=== PATIENT | male | born 1975 | race Caucasian/White ===

== ENCOUNTER 2019-09-26 18:18 | Inpatient (IN) | payer MEDICAID ==
[~2019-09-26] VITALS: Ht 182.9 cm; Wt 70.2 kg
[~2019-09-26 18:18] MED LIST: ERYT1OIN6 OP; PERM60CR4 TOP; etomidate 2mg/ml inj. ONE; rocuronium bromide 100mg/10ml (10mg/ml) injection IV ONE
[2019-09-26] MEDS ORDERED: normal saline 1000ML IV soln IVB ONE (18:50)
--- NOTE | 2019-09-26 18:58 | NUR ---
NOTIFIED MANA VALENZUELA OF PT BG 55, VERBAL ORDER 1 AMP D50
[2019-09-26] MEDS ORDERED: dextrose 50%-water 50ml dispensing syringe IV ONE ×2 (19:00→23:40)
[2019-09-26 19:01] LABS: ABG BASE EXCESS -18.4 mmol/L (-2.0-3.0); ABG HCO3 17.1 mmol/L (22.0-26.0); ABG OXYGEN SATURATION 63.6 % (95-98); ABG PCO2 (T) 92.6 mmHg (35.0-45.0); ABG PH (T) 6.885 (7.350-7.450); ALLEN'S TEST POSITIVE; FCOHb 0.3 % (0.5-1.5); FMetHb 0.3 % (0.3-1.12); FO2Hb 63.2 % (94-100); PEEP 15 cm H2O; RESPIRATORY RATE 20 b/min; TIDAL VOLUME 550 mL
[2019-09-26] MEDS ORDERED: piperacillin/tazo 3.375gm/50ml 50 ML IV ONE (19:05)
[2019-09-26] MEDS ORDERED: vancomycin/NS 1 GM ADD-VANTAGE 250 ML IV ONE (19:05)
[2019-09-26 19:22] LABS: CLARITY,URINE CLEAR (Clear); COLOR,URINE YELLOW (Yellow); GLUCOSE, URINE NEGATIVE (Neg); KETONES,URINE NEGATIVE (Neg); LEUKOCYTE ESTERASE ,URINE NEGATIVE (Neg); NITRITES, URINE NEGATIVE (Neg); OCCULT BLOOD,URINE TRACE-INTACT (Neg); PROTEIN,URINE 30 mg/dl (Neg); UROBILINOGEN,URINE 0.2 E.U/dL (0.2-1.0)
[2019-09-26] MEDS: propofol 1000mg/100ml bottle 100 ML IV SCH (19:22)
--- NOTE | 2019-09-26 19:30 | NUR ---
MANA VALENZUELA CLEARED CENTRAL LINE FOR PLACEMENT AND USE
[2019-09-26 19:32] LABS: URINE AMPHETAMINE SCREEN NEGATIVE (Neg); URINE BARBITUATE SCREEN NEGATIVE (Neg); URINE BENZODIAZEPINES SCREEN NEGATIVE (Neg); URINE CANNABINOID SCREEN NEGATIVE (Neg); URINE COCAINE SCREEN NEGATIVE (Neg); URINE METHADONE SCREEN POSITIVE (Neg); URINE OPIATE SCREEN NEGATIVE (Neg); URINE PHENCYCLIDINE SCREEN NEGATIVE (Neg)
[2019-09-26 19:42] LABS: UA COLLECTION TYPE FOLEY CATH
[2019-09-26 19:45] LABS: BACTERIA,URINE NONE SEEN /HPF (Neg); COARSE GRANULAR CAST 0-3 /LPF (NEGATIVE); MUCUS STRANDS FEW /LPF (Neg); RBC,URINE NONE SEEN /HPF (0-2); SQUAMOUS EPITHELIAL CELL,UR FEW /LPF (FEW); WBC,URINE 0-4 /HPF (0-4)
[2019-09-26] MEDS ORDERED: iohexol 350MG/ML 100ml bottle IV ONE (19:49)
[2019-09-26 19:51] LABS: BASOPHILS % (AUTO) 0.3 % (0-1); EOSINOPHILS % (AUTO) 0.5 % (0-6); HEMATOCRIT 49.7 % (42.0-52.0); HEMOGLOBIN 16.1 g/dl (14.0-17.9); LYMPHOCYTES # (AUTO) 0.7 X10'3 (1.1-4.8); LYMPHOCYTES % (AUTO) 46.1 % (21-51); MEAN CORPUSCULAR HEMOGLOBIN 26.8 PG (27.0-31.0); MEAN CORPUSCULAR HGB CONC 32.4 g/dL (33.0-36.5); MEAN CORPUSCULAR VOLUME 82.6 FL (78-98); MEAN PLATELET VOLUME 8.1 FL (7.4-10.4); MONOCYTES # (AUTO) 0.1 X10'3 (0-0.9); NEUTROPHILS # (AUTO) 0.7 X10'3 (1.8-7.7); NEUTROPHILS % (AUTO) 44.1 % (42-75); PLATELET COUNT 242 X10'3 (140-440); RED BLOOD COUNT 6.02 X10'6 (4.70-6.10); RED CELL DISTRIBUTION WIDTH 17.8 % (11.5-14.5); WHITE BLOOD COUNT 1.6 X10'3 (4.5-11.0)
[2019-09-26 19:57] LABS: PARTIAL THROMBOPLASTIN TIME 35 SECONDS (22-32)
[2019-09-26 20:00] LABS: ABG BASE EXCESS -16.4 mmol/L (-2.0-3.0); ABG HCO3 17.5 mmol/L (22.0-26.0); ABG OXYGEN SATURATION 84.2 % (95-98); ABG PCO2 (T) 85.4 mmHg (35.0-45.0); ABG PH (T) 6.939 (7.350-7.450); ABG PO2 (T) 67.5 mmHg (83-108); ALLEN'S TEST POSITIVE; FCOHb 0.2 % (0.5-1.5); FMetHb 0.6 % (0.3-1.12); FO2Hb 83.5 % (94-100); PATIENT TEMPERATURE 38.4; RESPIRATORY RATE 22 b/min; TIDAL VOLUME 550 mL
[2019-09-26 20:02] LABS: ALANINE AMINOTRANSFERASE 66 U/L (12-78); ALBUMIN 2.9 G/DL (3.4-5.0); ALBUMIN/GLOBULIN RATIO 0.9 (1.1-1.5); ALKALINE PHOSPHATASE 178 IU/L (46-116); ANION GAP 16 (8-16); ASPARTATE AMINO TRANSFERASE 115 U/L (10-37); BILIRUBIN,TOTAL 0.1 MG/DL (0.1-1.0); BLOOD UREA NITROGEN 17 MG/DL (7-18); BUN/CREATININE RATIO 7.5 (5.4-32.0); CALCIUM 7.2 MG/DL (8.5-10.1); CHLORIDE 108 MMOL/L (99-107); CREATININE 2.26 MG/DL (0.60-1.10); GLUCOSE 170 MG/DL (70-104); POTASSIUM 3.8 MMOL/L (3.5-5.1); SODIUM 147 MMOL/L (135-145); TOTAL CARBON DIOXIDE 22.8 MMOL/L (24-32); eGFR 32 ML/MIN
[2019-09-26 20:06] LABS: ETHANOL < 0.010 GM/DL (0.0-0.010); MAGNESIUM 2.2 MG/DL (1.5-2.4)
[2019-09-26 20:09] LABS: LACTIC SEPSIS 6.6 MMOL/L (0.4-2.0); TROPONIN I 5.43 NG/ML (0.0-0.05)
--- NOTE | 2019-09-26 20:09 | NUR ---
TROPONIN 5.43 AND LACTIC ACID 6.6. REPORTED TO DR. ADAIR AND NANETTE ALEX.
[2019-09-26 20:49] LABS: NUCLEATED RED BLOOD CELLS 1 /100WBC (0-0); TOTAL CELLS COUNTED 100
[2019-09-26 20:51] LABS: ANISOCYTOSIS 1+; PLATELET ESTIMATE NORMAL
[2019-09-26] MEDS: NORepinephrine 8mg/ 250ml NS 250 ML IV SCH (21:17)
[2019-09-26] MEDS ORDERED: NO HOME MEDS (22:04)
[2019-09-26] MEDS ORDERED: potassium Cl 20mEq/100mL bag 100 ML IV PRN (22:05)
[2019-09-26] MEDS ORDERED: MESSAGE TO PHARMACY PO ONE (22:05)
[2019-09-26] MEDS ORDERED: dextrose 50%-water 50ml dispensing syringe IV PRN (22:05)
[2019-09-26] MEDS ORDERED: acetaminophen 650mg rectal suppository RC PRN (22:05)
[2019-09-26] MEDS ORDERED: insulin Lispro (HumaLOG) vial - multi-dose SQ SCH (22:05)
[2019-09-26] MEDS ORDERED: dextrose ORAL solution 15 GM/59 ML bottle PO PRN ×2 (22:05)
[2019-09-26] MEDS ORDERED: albuterol 2.5 MG/3 ML nebule NEB PRN (22:05)
[2019-09-26] MEDS ORDERED: acetaminophen 325mg tablet PO PRN (22:05)
[2019-09-26] MEDS ORDERED: ondansetron/PF 4mg/2ml inj IV PRN (22:05)
[2019-09-26] MEDS ORDERED: proCHLORperazine 10 MG/2 ml inj IV PRN (22:05)
[2019-09-26] MEDS ORDERED: magnesium 4gm in 100ml NS 100 ML IV PRN (22:05)
[2019-09-26] MEDS ORDERED: glucagon, human recombinant 1mg kit SUBCUT PRN (22:05)
[2019-09-26] MEDS ORDERED: cefepime 2g/NS 100ml ADVANTAGE 100 ML IV SCH (22:35)
[2019-09-26] MEDS ORDERED: heparin 10,000 units/1 ML INJ IV PRN (22:35)
[2019-09-26] MEDS ORDERED: heparin 10,000 units/1 ML INJ IV ONE (22:35)
[2019-09-26] MEDS ORDERED: NORepinephrine 8mg/ 250ml NS 250 ML IV PRN (22:37)
[2019-09-26] MEDS ORDERED: VANCOMYCIN 1gm/H2O 200ml PB 200 ML IV SCH (23:03)
[2019-09-26 23:16] LABS: ABG BASE EXCESS -14.6 mmol/L (-2.0-3.0); ABG HCO3 16.8 mmol/L (22.0-26.0); ABG OXYGEN SATURATION 92.1 % (95-98); ABG PCO2 (T) 69.4 mmHg (35.0-45.0); ABG PO2 (T) 84.9 mmHg (83-108); FCOHb 0.5 % (0.5-1.5); FMetHb 0.5 % (0.3-1.12); FO2Hb 91.2 % (94-100); PATIENT TEMPERATURE 39.6; PEEP 15 cm H2O; RESPIRATORY RATE 25 b/min; TIDAL VOLUME 550 mL; TOTAL HEMOGLOBIN 17.3 G/dl (14.0-17.9)
[2019-09-26 23:20] LABS: ALANINE AMINOTRANSFERASE 70 U/L (12-78); ALBUMIN 2.5 G/DL (3.4-5.0); ALBUMIN/GLOBULIN RATIO 0.9 (1.1-1.5); ALKALINE PHOSPHATASE 161 IU/L (46-116); ANION GAP 11 (8-16); ASPARTATE AMINO TRANSFERASE 217 U/L (10-37); BILIRUBIN,TOTAL 0.3 MG/DL (0.1-1.0); BLOOD UREA NITROGEN 22 MG/DL (7-18); BUN/CREATININE RATIO 8.2 (5.4-32.0); CALCIUM 6.8 MG/DL (8.5-10.1); CHLORIDE 110 MMOL/L (99-107); CREATININE 2.68 MG/DL (0.60-1.10); GLUCOSE 80 MG/DL (70-104); SODIUM 141 MMOL/L (135-145); TOTAL PROTEIN 5.4 G/DL (6.4-8.2); eGFR 26 ML/MIN
[2019-09-26] MEDS: normal saline 1000ml 1,000 ML IV SCH (23:20)
[2019-09-26] MEDS: heparin 25,000 UNIT/250ml bag 250 ML IV SCH (23:25)
[2019-09-26 23:27] LABS: HEMOGLOBIN A1C 5.7 % (4.5-6.2)
[2019-09-26 23:28] LABS: POTASSIUM 6.1 MMOL/L (3.5-5.1)
[2019-09-26 23:31] LABS: TROPONIN I 9.09 NG/ML (0.0-0.05)
--- NOTE | 2019-09-26 23:38 | NUR ---
NOTIFIED DRGAAN RAMOS OF PT ELEVATED POTASSIUM AND 2ND TROPONIN. DRAGAN STATED SHE WILL PUT IN ORDERS
[2019-09-26] MEDS ORDERED: albuterol 2.5 MG/3 ML nebule CONTNEB STA (23:39)
[2019-09-26] MEDS ORDERED: insulin regular, human 10 units/0.1 ml syringe IV STA (23:39)
[2019-09-26] MEDS ORDERED: calcium chloride inj. 1,000 MG in normal saline 100ml IV soln 90 ML IV STA (23:39)
[2019-09-26] MEDS ORDERED: sodium bicarbonate (8.4%) 1 mEq/ml syringe IV ONE (23:40)
[2019-09-26] MEDS: midazolam 100mg in NS 100ml 100 ML IV PRN (23:45)
[2019-09-26] MEDS: FENTANYL-0.9 % NACL/PF 100 ML IV PRN (23:46)
[2019-09-27] VITALS (26 sets, daily range): BP systolic 79–131; BP diastolic 32–79
[2019-09-27] MEDS: ipratropium/albuterol 3ml nebule NEB SCH ×7 (00:04→22:30)
[2019-09-27] MEDS: NORepinephrine 8mg/ 250ml NS 250 ML IV SCH ×8 (00:04→21:34)
--- NOTE | 2019-09-27 00:04 | NUR ---
PTS BP 55/34 SO NS 1 L BOLUS STARTED WHILE NANETTE ALEX CALLED SHOW HOST.
[2019-09-27] MEDS ORDERED: DOBUTamine-DoBUTrex 500mg/D5W 250 ML IV PRN (00:05)
[2019-09-27] MEDS ORDERED: acetaminophen 1,000mg/100ml IV 100 ML IV STA (00:12)
[2019-09-27] MEDS ORDERED: calcium chloride 100 MG/1 ML inj IV ONE (00:15)
[2019-09-27] MEDS: CEFEPIME 2gm in D5W 50mL 50 ML IV SCH (01:47)
[2019-09-27] MEDS: propofol 1000mg/100ml bottle 100 ML IV SCH ×2 (01:48→01:51)
[2019-09-27] MEDS: vasopressin inj. 40 UNIT in normal saline 50ml IV soln 40 ML IV SCH ×2 (02:32→14:15)
[2019-09-27 03:04] LABS: BASOPHILS % (AUTO) 0.1 % (0-1); EOSINOPHILS % (AUTO) 0.1 % (0-6); HEMATOCRIT 45.4 % (42.0-52.0); HEMOGLOBIN 14.8 g/dl (14.0-17.9); LYMPHOCYTES # (AUTO) 0.9 X10'3 (1.1-4.8); LYMPHOCYTES % (AUTO) 35.7 % (21-51); MEAN CORPUSCULAR HEMOGLOBIN 26.7 PG (27.0-31.0); MEAN CORPUSCULAR HGB CONC 32.5 g/dL (33.0-36.5); MEAN CORPUSCULAR VOLUME 82.2 FL (78-98); MEAN PLATELET VOLUME 8.3 FL (7.4-10.4); MONOCYTES # (AUTO) 0.2 X10'3 (0-0.9); MONOCYTES % (AUTO) 6.5 % (2-12); NEUTROPHILS # (AUTO) 1.4 X10'3 (1.8-7.7); NEUTROPHILS % (AUTO) 57.6 % (42-75); PLATELET COUNT 209 X10'3 (140-440); RED BLOOD COUNT 5.52 X10'6 (4.70-6.10); RED CELL DISTRIBUTION WIDTH 17.6 % (11.5-14.5); WHITE BLOOD COUNT 2.5 X10'3 (4.5-11.0)
[2019-09-27 03:11] LABS: ALANINE AMINOTRANSFERASE 67 U/L (12-78); ALBUMIN/GLOBULIN RATIO 0.9 (1.1-1.5); ALKALINE PHOSPHATASE 127 IU/L (46-116); ANION GAP 9 (8-16); ASPARTATE AMINO TRANSFERASE 182 U/L (10-37); BILIRUBIN,TOTAL 0.2 MG/DL (0.1-1.0); BLOOD UREA NITROGEN 29 MG/DL (7-18); BUN/CREATININE RATIO 8.7 (5.4-32.0); CALCIUM 6.8 MG/DL (8.5-10.1); CHLORIDE 114 MMOL/L (99-107); CREATININE 3.35 MG/DL (0.60-1.10); GLUCOSE 110 MG/DL (70-104); POTASSIUM 4.9 MMOL/L (3.5-5.1); SODIUM 146 MMOL/L (135-145); TOTAL CARBON DIOXIDE 22.9 MMOL/L (24-32); TOTAL PROTEIN 4.3 G/DL (6.4-8.2); eGFR 20 ML/MIN
[2019-09-27 03:15] LABS: MAGNESIUM 1.6 MG/DL (1.5-2.4)
[2019-09-27 03:17] LABS: TROPONIN I 14.18 NG/ML (0.0-0.05)
[2019-09-27 03:27] LABS: PARTIAL THROMBOPLASTIN TIME > 139 SECONDS (22-32)
[2019-09-27 03:40] LABS: ABG BASE EXCESS -15.7 mmol/L (-2.0-3.0); ABG OXYGEN SATURATION 97.4 % (95-98); ABG PCO2 (T) 53.2 mmHg (35.0-45.0); ABG PH (T) 7.055 (7.350-7.450); ABG PO2 (T) 130.1 mmHg (83-108); ALLEN'S TEST POSITIVE; FCOHb 0.3 % (0.5-1.5); FMetHb 0.4 % (0.3-1.12); FO2Hb 96.7 % (94-100); PATIENT TEMPERATURE 39.8; PEEP 15 cm H2O; RESPIRATORY RATE 25 b/min; TIDAL VOLUME 550 mL; TOTAL HEMOGLOBIN 16.1 G/dl (14.0-17.9)
[2019-09-27 03:46] LABS: NUCLEATED RED BLOOD CELLS 3 /100WBC (0-0); TOTAL CELLS COUNTED 100
[2019-09-27 03:47] LABS: ANISOCYTOSIS 1+; PLATELET ESTIMATE NORMAL
[2019-09-27] MEDS ORDERED: sodium bicarbonate (8.4%) 1 mEq/ml syringe IV ONE (04:45)
[2019-09-27] MEDS ORDERED: sodium bicarbonate (8.4%) inj. 1 MEQ/ML ML ONE (04:52)
[2019-09-27] MEDS: sodium bicarbonate (8.4%) inj. 75 MEQ in dextrose 5% water 500ml 500 ML IV SCH ×4 (05:42→22:29)
--- NOTE | 2019-09-27 06:30 | NUR ---
Patient in room CICU 2013. I have received report from Roxy FITZPATRICK and had the opportunity to ask questions and assume patient care.
[2019-09-27] MEDS: midazolam 100mg in NS 100ml 100 ML IV PRN ×2 (07:53→18:04)
[2019-09-27] MEDS: pantoprazole 40 MG vial IV SCH (07:55)
[2019-09-27] MEDS: docusate sodium 100mg/10ml UD cup PO SCH ×2 (07:59→20:18)
[2019-09-27] MEDS: K, MAG and/or Phos replacement - Verify level? MC SCH (08:00)
[2019-09-27] MEDS ORDERED: VANCOMYCIN 1gm/H2O 200ml PB 200 ML IV SCH (08:00)
[2019-09-27] MEDS: normal saline 1000ml 1,000 ML IV SCH ×2 (08:04→18:04)
[2019-09-27 08:20] LABS: ALBUMIN 2.2 G/DL (3.4-5.0); ANION GAP 16 (8-16); BLOOD UREA NITROGEN 35 MG/DL (7-18); CALCIUM 6.8 MG/DL (8.5-10.1); CHLORIDE 113 MMOL/L (99-107); CREATININE 3.87 MG/DL (0.60-1.10); GLUCOSE 148 MG/DL (70-104); PHOSPHORUS 4.8 MG/DL (2.3-4.5); POTASSIUM 4.3 MMOL/L (3.5-5.1); SODIUM 147 MMOL/L (135-145); eGFR 17 ML/MIN
[2019-09-27 08:55] LABS: ABG HCO3 14.2 mmol/L (22.0-26.0); ABG OXYGEN SATURATION 91.9 % (95-98); ABG PCO2 (T) 55.5 mmHg (35.0-45.0); ABG PH (T) 7.027 (7.350-7.450); ABG PO2 (T) 70.5 mmHg (83-108); FCOHb 0.3 % (0.5-1.5); FMetHb 0.4 % (0.3-1.12); FO2Hb 91.3 % (94-100); PEEP 12 cm H2O; RESPIRATORY RATE 25 b/min; TIDAL VOLUME 550 mL; TOTAL HEMOGLOBIN 15.9 G/dl (14.0-17.9)
[2019-09-27 09:45] LABS: TROPONIN I 11.97 NG/ML (0.0-0.05)
--- NOTE | 2019-09-27 09:45 | NUR ---
Cardiac Ultrasound is in the room with Patient and Fiance.
--- NOTE | 2019-09-27 10:54 | NUR ---
Sonny at bedside, was available to answer questions for Admission Interventions, and was able to talk with Dr. Montoya post-rounding.
[2019-09-27 11:20] LABS: OXYGEN SATURATION (MIXED VEN) 72.6 % (60-80); PO2 MIXED VENOUS (TEMP COR) 51.5 mmHg (35-46)
[2019-09-27] MEDS: methylPREDNISolone sod succ/PF 40mg inj. IV SCH ×2 (13:57→20:18)
--- NOTE | 2019-09-27 15:13 | NUR ---
Tube feeding consult. Patient intubated and sedated with respiratory failure after found responsive at home s/p OD of methadone. Per MD note has white out left lung. History of celiac disease, hepatitis C, and heroin. TF recs are below. Recommend: 1. Continuous tube feeding with vital AF at goal rate of 80 ml/hr will provide total volume 1920 ml, 2304 cals, 144 g protein, 1555 ml water. 2. If providing water flush recommend 135 ml water flush q 4 hours 3. prealbumin q tuesday and 4. daily weights 5. when extubated advance diet as medically indicated to regular Addendum: 09/27/19 at [address] Amended: Links added.
[2019-09-27 15:14] LABS: HIV ANTIBODY 1&2 RAPID NON-REACTIVE (Neg)
[2019-09-27 17:50] LABS: ABG BASE EXCESS -15.1 mmol/L (-2.0-3.0); ABG HCO3 12.9 mmol/L (22.0-26.0); ABG OXYGEN SATURATION 97.5 % (95-98); ABG PCO2 (T) 37.8 mmHg (35.0-45.0); ABG PH (T) 7.151 (7.350-7.450); ABG PO2 (T) 107.7 mmHg (83-108); FCOHb 0.3 % (0.5-1.5); FMetHb 0.4 % (0.3-1.12); FO2Hb 96.8 % (94-100); PATIENT TEMPERATURE 36.9; PEEP 12 cm H2O; RESPIRATORY RATE 25 b/min; TIDAL VOLUME 550 mL; TOTAL HEMOGLOBIN 15.2 G/dl (14.0-17.9)
[2019-09-27 18:06] LABS: ALANINE AMINOTRANSFERASE 118 U/L (12-78); ALBUMIN 2.1 G/DL (3.4-5.0); ALBUMIN/GLOBULIN RATIO 0.8 (1.1-1.5); ALKALINE PHOSPHATASE 96 IU/L (46-116); ANION GAP 17 (8-16); ASPARTATE AMINO TRANSFERASE 149 U/L (10-37); BILIRUBIN,TOTAL 0.2 MG/DL (0.1-1.0); BLOOD UREA NITROGEN 40 MG/DL (7-18); BUN/CREATININE RATIO 9.2 (5.4-32.0); CALCIUM 6.3 MG/DL (8.5-10.1); CHLORIDE 109 MMOL/L (99-107); CREATININE 4.36 MG/DL (0.60-1.10); GLUCOSE 246 MG/DL (70-104); POTASSIUM 4.7 MMOL/L (3.5-5.1); SODIUM 144 MMOL/L (135-145); TOTAL CARBON DIOXIDE 18.2 MMOL/L (24-32); TOTAL PROTEIN 4.6 G/DL (6.4-8.2); eGFR 15 ML/MIN
--- NOTE | 2019-09-27 18:25 | NUR ---
Problems reprioritized. Patient report given, questions answered & plan of care reviewed with Roxy FITZPATRICK.
[2019-09-27] MEDS: insulin glargine (Lantus) pen - multi-dose SQ SCH (21:28)
[2019-09-27] MEDS: insulin regular, human U-100 3ml vial - multi-dose SQ SCH (21:29)
[2019-09-28] VITALS (24 sets, daily range): BP systolic 87–116; BP diastolic 45–74
[2019-09-28] MEDS: acetaminophen 325mg tablet PO PRN ×2 (01:10→16:27)
[2019-09-28] MEDS: mineral oil/petrolatum ophthal oint EACHEYE SCH ×4 (02:01→20:20)
[2019-09-28] MEDS: methylPREDNISolone sod succ/PF 40mg inj. IV SCH ×4 (02:01→20:19)
[2019-09-28] MEDS: heparin 25,000 UNIT/250ml bag 250 ML IV SCH (02:18)
[2019-09-28] MEDS: insulin regular, human U-100 3ml vial - multi-dose SQ SCH ×4 (02:33→20:39)
[2019-09-28 02:44] LABS: BASOPHILS % (AUTO) 0.2 % (0-1); EOSINOPHILS % (AUTO) 0 % (0-6); HEMATOCRIT 38.8 % (42.0-52.0); LYMPHOCYTES # (AUTO) 0.7 X10'3 (1.1-4.8); LYMPHOCYTES % (AUTO) 6.4 % (21-51); MEAN CORPUSCULAR HEMOGLOBIN 26.2 PG (27.0-31.0); MEAN CORPUSCULAR HGB CONC 33.4 g/dL (33.0-36.5); MEAN CORPUSCULAR VOLUME 78.5 FL (78-98); MEAN PLATELET VOLUME 8.7 FL (7.4-10.4); MONOCYTES # (AUTO) 0.4 X10'3 (0-0.9); MONOCYTES % (AUTO) 3.5 % (2-12); NEUTROPHILS % (AUTO) 89.9 % (42-75); PLATELET COUNT 138 X10'3 (140-440); RED BLOOD COUNT 4.94 X10'6 (4.70-6.10); WHITE BLOOD COUNT 11.1 X10'3 (4.5-11.0)
[2019-09-28] MEDS: ipratropium/albuterol 3ml nebule NEB SCH ×6 (02:52→23:10)
[2019-09-28 03:03] LABS: ANION GAP 16 (8-16); BLOOD UREA NITROGEN 48 MG/DL (7-18); BUN/CREATININE RATIO 10.3 (5.4-32.0); CALCIUM 6.1 MG/DL (8.5-10.1); CHLORIDE 106 MMOL/L (99-107); CREATININE 4.68 MG/DL (0.60-1.10); GLUCOSE 251 MG/DL (70-104); MAGNESIUM 1.2 MG/DL (1.5-2.4); PHOSPHORUS 3.7 MG/DL (2.3-4.5); POTASSIUM 4.6 MMOL/L (3.5-5.1); SODIUM 143 MMOL/L (135-145); TOTAL CARBON DIOXIDE 21.5 MMOL/L (24-32); eGFR 14 ML/MIN
[2019-09-28 03:04] LABS: ALANINE AMINOTRANSFERASE 152 U/L (12-78); ALBUMIN 1.9 G/DL (3.4-5.0); ALBUMIN/GLOBULIN RATIO 0.7 (1.1-1.5); ALKALINE PHOSPHATASE 75 IU/L (46-116); ASPARTATE AMINO TRANSFERASE 142 U/L (10-37); BILIRUBIN,TOTAL 0.3 MG/DL (0.1-1.0); PREALBUMIN 14.6 MG/DL (19-36); TOTAL PROTEIN 4.5 G/DL (6.4-8.2)
[2019-09-28] MEDS: sodium bicarbonate (8.4%) inj. 75 MEQ in dextrose 5% water 500ml 500 ML IV SCH ×4 (03:25→21:12)
[2019-09-28] MEDS: NORepinephrine 8mg/ 250ml NS 250 ML IV SCH ×4 (03:26→19:00)
[2019-09-28] MEDS: midazolam 100mg in NS 100ml 100 ML IV PRN ×2 (03:26→21:13)
[2019-09-28] MEDS: FENTANYL-0.9 % NACL/PF 100 ML IV PRN (03:27)
--- NOTE | 2019-09-28 03:44 | NUR ---
temperature 38.6 , tylenol given as ordered but temp continually going up , cooling blanket applied
[2019-09-28] MEDS: normal saline 1000ml 1,000 ML IV SCH (04:04)
[2019-09-28 04:21] LABS: ABG OXYGEN SATURATION 98.1 % (95-98); ABG PH (T) 7.279 (7.350-7.450); ABG PO2 (T) 116.5 mmHg (83-108); FCOHb 0.3 % (0.5-1.5); FMetHb 0.3 % (0.3-1.12); FO2Hb 97.5 % (94-100); RESPIRATORY RATE 25 b/min; TIDAL VOLUME 550 mL; TOTAL HEMOGLOBIN 13.1 G/dl (14.0-17.9)
[2019-09-28] MEDS: pantoprazole 40 MG vial IV SCH (07:57)
[2019-09-28] MEDS: docusate sodium 100mg/10ml UD cup PO SCH ×2 (07:57→20:20)
[2019-09-28] MEDS: CEFEPIME 2gm in D5W 50mL 50 ML IV SCH (07:57)
[2019-09-28] MEDS: vancomycin/NS 1 GM ADD-VANTAGE 250 ML IV SCH (08:20)
[2019-09-28] MEDS: MVI, adult No.4 with vit. K 10 ML in dextrose 5% water 500ml 490 ML IV SCH ×2 (08:30)
[2019-09-28] MEDS: K, MAG and/or Phos replacement - Verify level? MC SCH (08:41)
--- NOTE | 2019-09-28 09:28 | NUR ---
received results from lab; MRSA nasal screen is (+). primary RN Barby aware.
[2019-09-28] MEDS: thiamine inj. 100 MG, magnesium 1 gm/2ml inj. 2 GM in normal saline 100ml IV soln 100 ML IV SCH (10:13)
[2019-09-28 13:36] LABS: PARTIAL THROMBOPLASTIN TIME 56 SECONDS (22-32)
[2019-09-28] MEDS: magnesium 2GM in 50ml NS 50 ML IV PRN ×2 (16:47→19:11)
--- NOTE | 2019-09-28 18:47 | NUR ---
Problems reprioritized. Patient report given to assistant shift supervisor RN, questions answered & plan of care reviewed with .
[2019-09-28 19:57] LABS: PARTIAL THROMBOPLASTIN TIME 60 SECONDS (22-32)
[2019-09-28] MEDS: insulin glargine (Lantus) pen - multi-dose SQ SCH (20:41)
[2019-09-28] MEDS ORDERED: lactulose 20gm/30ml cup PO PRN (22:05)
[2019-09-29] VITALS (24 sets, daily range): BP systolic 97–115; BP diastolic 53–72
[2019-09-29] MEDS: NORepinephrine 8mg/ 250ml NS 250 ML IV SCH ×8 (00:26→23:25)
[2019-09-29] MEDS: vasopressin inj. 40 UNIT in normal saline 50ml IV soln 40 ML IV SCH (02:05)
[2019-09-29] MEDS: insulin regular, human U-100 3ml vial - multi-dose SQ SCH ×4 (02:24→21:01)
[2019-09-29] MEDS: mineral oil/petrolatum ophthal oint EACHEYE SCH ×4 (02:25→20:52)
[2019-09-29] MEDS: methylPREDNISolone sod succ/PF 40mg inj. IV SCH ×4 (02:25→20:52)
[2019-09-29 02:33] LABS: EOSINOPHILS % (AUTO) 0 % (0-6); HEMOGLOBIN 10.3 g/dl (14.0-17.9); LYMPHOCYTES # (AUTO) 0.4 X10'3 (1.1-4.8); LYMPHOCYTES % (AUTO) 4.5 % (21-51)
[2019-09-29 02:35] LABS: BASOPHILS % (AUTO) 0.1 % (0-1); MEAN CORPUSCULAR HEMOGLOBIN 26.6 PG (27.0-31.0); MEAN CORPUSCULAR HGB CONC 34.5 g/dL (33.0-36.5); MEAN CORPUSCULAR VOLUME 77.2 FL (78-98); MEAN PLATELET VOLUME 9.5 FL (7.4-10.4); MONOCYTES # (AUTO) 0.4 X10'3 (0-0.9); MONOCYTES % (AUTO) 4.5 % (2-12); NEUTROPHILS % (AUTO) 90.9 % (42-75); PARTIAL THROMBOPLASTIN TIME 53 SECONDS (22-32); RED BLOOD COUNT 3.88 X10'6 (4.70-6.10); RED CELL DISTRIBUTION WIDTH 17.9 % (11.5-14.5); WHITE BLOOD COUNT 8.8 X10'3 (4.5-11.0)
[2019-09-29 02:37] LABS: ALANINE AMINOTRANSFERASE 263 U/L (12-78); ALBUMIN 1.8 G/DL (3.4-5.0); ALBUMIN/GLOBULIN RATIO 0.6 (1.1-1.5); ALKALINE PHOSPHATASE 77 IU/L (46-116); ANION GAP 9 (8-16); ASPARTATE AMINO TRANSFERASE 188 U/L (10-37); BILIRUBIN,TOTAL 0.4 MG/DL (0.1-1.0); BLOOD UREA NITROGEN 52 MG/DL (7-18); BUN/CREATININE RATIO 11.7 (5.4-32.0); CALCIUM 6.4 MG/DL (8.5-10.1); CHLORIDE 102 MMOL/L (99-107); CREATININE 4.45 MG/DL (0.60-1.10); GLUCOSE 159 MG/DL (70-104); MAGNESIUM 2.9 MG/DL (1.5-2.4); PHOSPHORUS 3.2 MG/DL (2.3-4.5); POTASSIUM 3.3 MMOL/L (3.5-5.1); SODIUM 142 MMOL/L (135-145); TOTAL CARBON DIOXIDE 31.2 MMOL/L (24-32); TOTAL PROTEIN 4.8 G/DL (6.4-8.2); eGFR 15 ML/MIN
[2019-09-29 02:45] LABS: PLATELET COUNT 42 X10'3 (140-440)
[2019-09-29] MEDS: sodium bicarbonate (8.4%) inj. 75 MEQ in dextrose 5% water 500ml 500 ML IV SCH ×3 (03:24→14:55)
[2019-09-29] MEDS: ipratropium/albuterol 3ml nebule NEB SCH ×6 (04:32→23:24)
[2019-09-29 05:30] LABS: ABG BASE EXCESS 3.2 mmol/L (-2.0-3.0); ABG HCO3 26.6 mmol/L (22.0-26.0); ABG OXYGEN SATURATION 96.9 % (95-98); ABG PCO2 (T) 36.1 mmHg (35.0-45.0); ABG PH (T) 7.485 (7.350-7.450); ABG PO2 (T) 94.4 mmHg (83-108); ALLEN'S TEST POSITIVE; FCOHb 0.2 % (0.5-1.5); FO2Hb 96.7 % (94-100); PATIENT TEMPERATURE 37.1; PEEP 5 cm H2O; RESPIRATORY RATE 20 b/min; TIDAL VOLUME 550 mL; TOTAL HEMOGLOBIN 10.6 G/dl (14.0-17.9)
[2019-09-29] MEDS: MVI, adult No.4 with vit. K 10 ML in dextrose 5% water 500ml 490 ML IV SCH ×2 (07:14)
[2019-09-29] MEDS: docusate sodium 100mg/10ml UD cup PO SCH ×2 (07:14→20:53)
[2019-09-29] MEDS: pantoprazole 40 MG vial IV SCH (07:14)
[2019-09-29] MEDS: CefTRIAXone 2gm/D5W 50ml 50 ML IV SCH (07:15)
[2019-09-29] MEDS ORDERED: VANCOMYCIN LEVEL IV ONE (07:30)
[2019-09-29] MEDS: thiamine inj. 100 MG, magnesium 1 gm/2ml inj. 2 GM in normal saline 100ml IV soln 100 ML IV SCH (07:42)
[2019-09-29] MEDS: vancomycin/NS 1 GM ADD-VANTAGE 250 ML IV SCH ×2 (07:55→08:50)
[2019-09-29] MEDS: K, MAG and/or Phos replacement - Verify level? MC SCH (08:00)
[2019-09-29] MEDS ORDERED: aspirin 325mg tablet PO SCH (08:30)
[2019-09-29] MEDS: FENTANYL-0.9 % NACL/PF 100 ML IV PRN (10:22)
[2019-09-29] MEDS: potassium Cl 20mEq/100mL bag 100 ML IV PRN ×2 (10:55→12:18)
[2019-09-29] MEDS: midazolam 100mg in NS 100ml 100 ML IV PRN (17:03)
[2019-09-29] MEDS: sodium chloride 0.45% 1,000 ML IV SCH (17:04)
[2019-09-29] MEDS: insulin glargine (Lantus) pen - multi-dose SQ SCH (20:57)
[2019-09-30] VITALS (25 sets, daily range): BP systolic 98–118; BP diastolic 16–76
[2019-09-30] MEDS: methylPREDNISolone sod succ/PF 40mg inj. IV SCH ×4 (01:45→20:41)
[2019-09-30] MEDS: insulin regular, human U-100 3ml vial - multi-dose SQ SCH ×4 (01:47→20:48)
[2019-09-30] MEDS: mineral oil/petrolatum ophthal oint EACHEYE SCH ×4 (01:49→20:42)
[2019-09-30] MEDS: ipratropium/albuterol 3ml nebule NEB SCH ×6 (03:00→23:37)
[2019-09-30] MEDS: NORepinephrine 8mg/ 250ml NS 250 ML IV SCH ×6 (03:08→21:43)
[2019-09-30 03:27] LABS: BASOPHILS % (AUTO) 0 % (0-1); EOSINOPHILS % (AUTO) 0 % (0-6); HEMATOCRIT 25.7 % (42.0-52.0); HEMOGLOBIN 8.8 g/dl (14.0-17.9); LYMPHOCYTES # (AUTO) 0.5 X10'3 (1.1-4.8); LYMPHOCYTES % (AUTO) 5.7 % (21-51); MEAN CORPUSCULAR HEMOGLOBIN 26.6 PG (27.0-31.0); MEAN CORPUSCULAR HGB CONC 34.3 g/dL (33.0-36.5); MEAN CORPUSCULAR VOLUME 77.4 FL (78-98); MEAN PLATELET VOLUME 9.1 FL (7.4-10.4); MONOCYTES # (AUTO) 0.4 X10'3 (0-0.9); NEUTROPHILS # (AUTO) 7.7 X10'3 (1.8-7.7); NEUTROPHILS % (AUTO) 89.3 % (42-75); RED BLOOD COUNT 3.32 X10'6 (4.70-6.10); RED CELL DISTRIBUTION WIDTH 18.2 % (11.5-14.5); WHITE BLOOD COUNT 8.6 X10'3 (4.5-11.0)
[2019-09-30 03:34] LABS: PLATELET COUNT 33 X10'3 (140-440)
[2019-09-30 03:35] LABS: PARTIAL THROMBOPLASTIN TIME 34 SECONDS (22-32)
[2019-09-30 03:40] LABS: ALANINE AMINOTRANSFERASE 262 U/L (12-78); ALBUMIN 1.7 G/DL (3.4-5.0); ALBUMIN/GLOBULIN RATIO 0.5 (1.1-1.5); ALKALINE PHOSPHATASE 115 IU/L (46-116); ANION GAP 8 (8-16); ASPARTATE AMINO TRANSFERASE 138 U/L (10-37); BILIRUBIN,TOTAL 0.3 MG/DL (0.1-1.0); BLOOD UREA NITROGEN 72 MG/DL (7-18); BUN/CREATININE RATIO 16.8 (5.4-32.0); CALCIUM 6.9 MG/DL (8.5-10.1); CHLORIDE 102 MMOL/L (99-107); CREATININE 4.29 MG/DL (0.60-1.10); GLUCOSE 102 MG/DL (70-104); PHOSPHORUS 4.1 MG/DL (2.3-4.5); POTASSIUM 3.6 MMOL/L (3.5-5.1); SODIUM 141 MMOL/L (135-145); TOTAL CARBON DIOXIDE 31.4 MMOL/L (24-32); TOTAL PROTEIN 5.2 G/DL (6.4-8.2); eGFR 15 ML/MIN
[2019-09-30 04:28] LABS: ANISOCYTOSIS 2+; MICROCYTOSIS 1+; PLATELET ESTIMATE NORMAL; TOTAL CELLS COUNTED 100
[2019-09-30 04:29] LABS: ELLIPTOCYTES FEW
[2019-09-30 05:01] LABS: ABG BASE EXCESS 7.9 mmol/L (-2.0-3.0); ABG HCO3 31.2 mmol/L (22.0-26.0); ABG OXYGEN SATURATION 96.2 % (95-98); ABG PCO2 (T) 39.2 mmHg (35.0-45.0); ABG PO2 (T) 86.2 mmHg (83-108); ALLEN'S TEST POSITIVE; FCOHb 0.3 % (0.5-1.5); FMetHb 0.1 % (0.3-1.12); FO2Hb 95.8 % (94-100); PATIENT TEMPERATURE 37.3; PEEP 5 cm H2O; RESPIRATORY RATE 20 b/min; TIDAL VOLUME 550 mL; TOTAL HEMOGLOBIN 9.5 G/dl (14.0-17.9)
--- NOTE | 2019-09-30 05:53 | NUR ---
Student documentation: I have reviewed and agree with all interventions, assessments performed and documented by BONOE JOHNSON. Student Medication Administration: For this medication-pass time frame, all medication were reviewed, dispensed, administered and documented per hospital policy by BOONE JOHNSON.
[2019-09-30] MEDS: sodium chloride 0.45% 1,000 ML IV SCH ×2 (06:15→19:35)
[2019-09-30] MEDS: thiamine inj. 100 MG, magnesium 1 gm/2ml inj. 2 GM in normal saline 100ml IV soln 100 ML IV SCH (07:30)
[2019-09-30] MEDS: vancomycin inj. 750 MG in normal saline 250ml IV soln 250 ML IV SCH (07:31)
[2019-09-30] MEDS: MVI, adult No.4 with vit. K 10 ML in dextrose 5% water 500ml 490 ML IV SCH ×2 (07:31)
[2019-09-30] MEDS: docusate sodium 100mg/10ml UD cup PO SCH ×2 (07:32→20:41)
[2019-09-30] MEDS: pantoprazole 40 MG vial IV SCH (07:32)
[2019-09-30] MEDS: CefTRIAXone 2gm/D5W 50ml 50 ML IV SCH (07:34)
[2019-09-30] MEDS: K, MAG and/or Phos replacement - Verify level? MC SCH (08:00)
--- NOTE | 2019-09-30 12:02 | NUR ---
Reassessment: Pt tolerating TF at goal GRV WNL. No BM since admit 5 days receiving colace routinely; JASMYN d/w RN regarding opioid antagonist per MD approval since receiving fentanyl and midazolam. Will continue to monitor. Recommend: 1. Continuous tube feeding with vital AF at goal rate of 80 ml/hr will provide total volume 1920 ml, 2304 cals, 144 g protein, 1555 ml water. 2. If providing water flush recommend 135 ml water flush q 4 hours 3. prealbumin q tuesday and 4. daily weights 5. routine bowel care; opioid antagonist per MD approval no BM 5 days 6. when extubated advance diet as medically indicated to regular Addendum: 09/30/19 at [address] Amended: Links added.
--- NOTE | 2019-09-30 18:59 | NUR ---
Patient in room CICU 2013. I have received report from NANETTE Pulliam and had the opportunity to ask questions and assume patient care. Patient is intubated/sedated, I will continue to monitor.
[2019-09-30] MEDS: lactobacillus rhamnosus 10,000 MMU CELLS/CAPSULE PO SCH (20:41)
[2019-09-30] MEDS: insulin glargine (Lantus) pen - multi-dose SQ SCH (20:49)
[2019-10-01] VITALS (24 sets, daily range): BP systolic 120–139; BP diastolic 72–85
[2019-10-01] MEDS: midazolam 100mg in NS 100ml 100 ML IV PRN ×2 (00:48→22:18)
[2019-10-01] MEDS: sodium chloride 0.45% 1,000 ML IV SCH ×2 (00:49→20:06)
[2019-10-01] MEDS: NORepinephrine 8mg/ 250ml NS 250 ML IV SCH ×2 (01:26→05:09)
[2019-10-01] MEDS: vasopressin inj. 40 UNIT in normal saline 50ml IV soln 40 ML IV SCH (02:05)
[2019-10-01] MEDS: dextrose 50%-water 50ml dispensing syringe IV PRN (02:06)
[2019-10-01] MEDS: methylPREDNISolone sod succ/PF 40mg inj. IV SCH ×4 (02:16→19:44)
[2019-10-01] MEDS: mineral oil/petrolatum ophthal oint EACHEYE SCH ×4 (02:17→19:45)
[2019-10-01 02:56] LABS: BASOPHILS % (AUTO) 0.1 % (0-1); EOSINOPHILS % (AUTO) 0 % (0-6); HEMATOCRIT 26.6 % (42.0-52.0); LYMPHOCYTES # (AUTO) 0.7 X10'3 (1.1-4.8); LYMPHOCYTES % (AUTO) 7.4 % (21-51); MEAN CORPUSCULAR HEMOGLOBIN 26.4 PG (27.0-31.0); MEAN CORPUSCULAR HGB CONC 33.9 g/dL (33.0-36.5); MEAN CORPUSCULAR VOLUME 77.8 FL (78-98); MEAN PLATELET VOLUME 9.6 FL (7.4-10.4); MONOCYTES # (AUTO) 0.7 X10'3 (0-0.9); MONOCYTES % (AUTO) 6.9 % (2-12); NEUTROPHILS # (AUTO) 8.3 X10'3 (1.8-7.7); NEUTROPHILS % (AUTO) 85.6 % (42-75); RED BLOOD COUNT 3.42 X10'6 (4.70-6.10); RED CELL DISTRIBUTION WIDTH 18.1 % (11.5-14.5); WHITE BLOOD COUNT 9.7 X10'3 (4.5-11.0)
[2019-10-01 03:03] LABS: PLATELET COUNT 45 X10'3 (140-440)
[2019-10-01 03:08] LABS: ALANINE AMINOTRANSFERASE 230 U/L (12-78); ALBUMIN 1.8 G/DL (3.4-5.0); ALBUMIN/GLOBULIN RATIO 0.5 (1.1-1.5); ALKALINE PHOSPHATASE 124 IU/L (46-116); ANION GAP 10 (8-16); ASPARTATE AMINO TRANSFERASE 85 U/L (10-37); BILIRUBIN,TOTAL 0.4 MG/DL (0.1-1.0); BLOOD UREA NITROGEN 99 MG/DL (7-18); BUN/CREATININE RATIO 25.9 (5.4-32.0); CALCIUM 7.4 MG/DL (8.5-10.1); CHLORIDE 101 MMOL/L (99-107); CREATININE 3.82 MG/DL (0.60-1.10); GLUCOSE 60 MG/DL (70-104); MAGNESIUM 2.9 MG/DL (1.5-2.4); PHOSPHORUS 4.3 MG/DL (2.3-4.5); POTASSIUM 3.8 MMOL/L (3.5-5.1); PREALBUMIN 14.8 MG/DL (19-36); SODIUM 141 MMOL/L (135-145); TOTAL CARBON DIOXIDE 29.6 MMOL/L (24-32); TOTAL PROTEIN 5.5 G/DL (6.4-8.2); eGFR 17 ML/MIN
[2019-10-01 03:12] LABS: PARTIAL THROMBOPLASTIN TIME 27 SECONDS (22-32)
[2019-10-01] MEDS: ipratropium/albuterol 3ml nebule NEB SCH ×6 (03:33→23:07)
[2019-10-01 04:10] LABS: ANISOCYTOSIS 2+; MICROCYTOSIS 1+; NUCLEATED RED BLOOD CELLS 4 /100WBC (0-0); PLATELET ESTIMATE DECREASED; TOTAL CELLS COUNTED 100
[2019-10-01 04:11] LABS: ELLIPTOCYTES FEW
[2019-10-01 05:06] LABS: ABG HCO3 25.7 mmol/L (22.0-26.0); ABG OXYGEN SATURATION 93.5 % (95-98); ABG PH (T) 7.629 (7.350-7.450); ABG PO2 (T) 61.3 mmHg (83-108); ALLEN'S TEST POSITIVE; FCOHb 0.3 % (0.5-1.5); FMetHb 0.3 % (0.3-1.12); FO2Hb 92.9 % (94-100); PATIENT TEMPERATURE 36.7; PEEP 5 cm H2O; RESPIRATORY RATE 18 b/min; TIDAL VOLUME 550 mL; TOTAL HEMOGLOBIN 10.1 G/dl (14.0-17.9)
--- NOTE | 2019-10-01 06:20 | NUR ---
Problems reprioritized. Patient report given, questions answered & plan of care reviewed with NANETTE Pulliam.
[2019-10-01] MEDS: pantoprazole 40 MG vial IV SCH (07:59)
[2019-10-01] MEDS: docusate sodium 100mg/10ml UD cup PO SCH (07:59)
[2019-10-01] MEDS: thiamine inj. 100 MG, magnesium 1 gm/2ml inj. 2 GM in normal saline 100ml IV soln 100 ML IV SCH (08:00)
[2019-10-01] MEDS: K, MAG and/or Phos replacement - Verify level? MC SCH (08:00)
[2019-10-01] MEDS: MVI, adult No.4 with vit. K 10 ML in dextrose 5% water 500ml 490 ML IV SCH ×2 (08:00)
[2019-10-01] MEDS: CefTRIAXone 2gm/D5W 50ml 50 ML IV SCH (08:00)
[2019-10-01] MEDS: vancomycin inj. 750 MG in normal saline 250ml IV soln 250 ML IV SCH (08:00)
[2019-10-01] MEDS: lactobacillus rhamnosus 10,000 MMU CELLS/CAPSULE PO SCH (08:01)
[2019-10-01] MEDS: insulin regular, human U-100 3ml vial - multi-dose SQ SCH ×3 (08:41→20:08)
[2019-10-01] MEDS ORDERED: acetaminophen 325mg tablet NG PRN ×2 (12:01)
[2019-10-01] MEDS ORDERED: dextrose ORAL solution 15 GM/59 ML bottle NG PRN ×2 (12:01)
[2019-10-01] MEDS ORDERED: lactulose 20gm/30ml cup NG PRN (12:02)
[2019-10-01 15:05] LABS: UA EOSINOPHILS NO EOS /HPF
[2019-10-01] MEDS: OLANZAPINE 5 MG TABLET PO SCH (17:00)
--- NOTE | 2019-10-01 18:15 | NUR ---
Patient in room CICU 2013. I have received report from NANETTE Pulliam and had the opportunity to ask questions and assume patient care. Patient still intubated/sedated, I will continue to monitor.
--- NOTE | 2019-10-01 18:50 | NUR ---
Patient's Keppra 1000mg BID was discontinued, I cld Dr. Matias and he said that was a mistake to restart medication PO. Addendum: 10/02/19 at 0317 by Marialuisa Dillon RN wrong patient
[2019-10-01] MEDS: docusate sodium 100mg/10ml UD cup NG SCH (19:44)
[2019-10-01] MEDS: lactobacillus rhamnosus 10,000 MMU CELLS/CAPSULE NG SCH (19:45)
[2019-10-01] MEDS: insulin glargine (Lantus) pen - multi-dose SQ SCH (21:13)
[2019-10-02] VITALS (24 sets, daily range): BP systolic 124–158; BP diastolic 69–85
[2019-10-02] MEDS: mineral oil/petrolatum ophthal oint EACHEYE SCH ×4 (02:09→20:04)
[2019-10-02] MEDS: methylPREDNISolone sod succ/PF 40mg inj. IV SCH ×4 (02:09→20:03)
[2019-10-02] MEDS: insulin regular, human U-100 3ml vial - multi-dose SQ SCH ×3 (02:11→15:24)
[2019-10-02 02:55] LABS: PARTIAL THROMBOPLASTIN TIME 24 SECONDS (22-32)
[2019-10-02 03:04] LABS: ALANINE AMINOTRANSFERASE 180 U/L (12-78); ALBUMIN 1.8 G/DL (3.4-5.0); ALBUMIN/GLOBULIN RATIO 0.5 (1.1-1.5); ALKALINE PHOSPHATASE 109 IU/L (46-116); ANION GAP 6 (8-16); ASPARTATE AMINO TRANSFERASE 52 U/L (10-37); BILIRUBIN,TOTAL 0.2 MG/DL (0.1-1.0); BLOOD UREA NITROGEN 120 MG/DL (7-18); BUN/CREATININE RATIO 36.4 (5.4-32.0); CALCIUM 7.4 MG/DL (8.5-10.1); CHLORIDE 103 MMOL/L (99-107); GLUCOSE 86 MG/DL (70-104); MAGNESIUM 3.2 MG/DL (1.5-2.4); PHOSPHORUS 5.3 MG/DL (2.3-4.5); POTASSIUM 3.9 MMOL/L (3.5-5.1); SODIUM 141 MMOL/L (135-145); TOTAL PROTEIN 5.5 G/DL (6.4-8.2); eGFR 21 ML/MIN
[2019-10-02 03:09] LABS: BASOPHILS % (AUTO) 0.1 % (0-1); EOSINOPHILS % (AUTO) 0 % (0-6); HEMOGLOBIN 8.7 g/dl (14.0-17.9); LYMPHOCYTES # (AUTO) 0.5 X10'3 (1.1-4.8); LYMPHOCYTES % (AUTO) 6.5 % (21-51); MEAN CORPUSCULAR HEMOGLOBIN 26.4 PG (27.0-31.0); MEAN CORPUSCULAR HGB CONC 33.5 g/dL (33.0-36.5); MEAN CORPUSCULAR VOLUME 78.8 FL (78-98); MEAN PLATELET VOLUME 9.8 FL (7.4-10.4); MONOCYTES # (AUTO) 0.7 X10'3 (0-0.9); MONOCYTES % (AUTO) 9.1 % (2-12); NEUTROPHILS # (AUTO) 6.8 X10'3 (1.8-7.7); NEUTROPHILS % (AUTO) 84.3 % (42-75); PLATELET COUNT 56 X10'3 (140-440); RED CELL DISTRIBUTION WIDTH 17.9 % (11.5-14.5); WHITE BLOOD COUNT 8.1 X10'3 (4.5-11.0)
[2019-10-02] MEDS: ipratropium/albuterol 3ml nebule NEB SCH ×5 (03:13→19:23)
[2019-10-02 03:25] LABS: ABG BASE EXCESS 1.1 mmol/L (-2.0-3.0); ABG HCO3 24.7 mmol/L (22.0-26.0); ABG OXYGEN SATURATION 90.7 % (95-98); ABG PCO2 (T) 35.8 mmHg (35.0-45.0); ABG PH (T) 7.458 (7.350-7.450); ABG PO2 (T) 63.1 mmHg (83-108); ALLEN'S TEST POSITIVE; FCOHb 0.3 % (0.5-1.5); FMetHb 0.1 % (0.3-1.12); FO2Hb 90.3 % (94-100); PATIENT TEMPERATURE 37.2; PEEP 5 cm H2O; RESPIRATORY RATE 18 b/min; TIDAL VOLUME 550 mL; TOTAL HEMOGLOBIN 9.8 G/dl (14.0-17.9)
[2019-10-02 05:00] LABS: NUCLEATED RED BLOOD CELLS 1 /100WBC (0-0); TOTAL CELLS COUNTED 100
[2019-10-02 05:01] LABS: ANISOCYTOSIS 1+; MICROCYTOSIS 1+; PLATELET ESTIMATE DECREASED
[2019-10-02] MEDS: FENTANYL-0.9 % NACL/PF 100 ML IV PRN (05:11)
--- NOTE | 2019-10-02 06:18 | NUR ---
Problems reprioritized. Patient report given, questions answered & plan of care reviewed with NANETTE Roger.
--- NOTE | 2019-10-02 06:30 | NUR ---
Patient in room CICU 2013. I have received report from NANETTE Elam and had the opportunity to ask questions and assume patient care.
[2019-10-02] MEDS: CefTRIAXone 2gm/D5W 50ml 50 ML IV SCH (07:38)
[2019-10-02] MEDS: MVI, adult No.4 with vit. K 10 ML in dextrose 5% water 500ml 490 ML IV SCH ×2 (07:39)
[2019-10-02] MEDS: vancomycin inj. 750 MG in normal saline 250ml IV soln 250 ML IV SCH (07:39)
[2019-10-02] MEDS: docusate sodium 100mg/10ml UD cup NG SCH ×2 (07:39→20:00)
[2019-10-02] MEDS: thiamine inj. 100 MG, magnesium 1 gm/2ml inj. 2 GM in normal saline 100ml IV soln 100 ML IV SCH (07:40)
[2019-10-02] MEDS: pantoprazole 40 MG vial IV SCH (07:40)
[2019-10-02] MEDS: OLANZAPINE 5 MG TABLET PO SCH (07:42)
[2019-10-02] MEDS: lactobacillus rhamnosus 10,000 MMU CELLS/CAPSULE NG SCH ×2 (07:43→20:03)
[2019-10-02] MEDS: K, MAG and/or Phos replacement - Verify level? MC SCH (08:00)
[2019-10-02] MEDS: sodium chloride 0.45% 1,000 ML IV SCH ×2 (11:35→13:39)
--- NOTE | 2019-10-02 11:54 | NUR ---
Reassessment: Pt tolerating TF at goal GRV WNL. Having small BMs daily with receiving colace routinely. Patient intubated and sedated with respiratory failure after found responsive at home s/p OD of methadone. Per MD note cannot wean from ventilator yet and has worsening renal failure, and had received oral contrast; noted that phosphorus and magnesium are elevated. History of celiac disease, hepatitis C, and heroin. Recommend: 1. Continuous tube feeding with vital AF at goal rate of 80 ml/hr will provide total volume 1920 ml, 2304 cals, 144 g protein, 1555 ml water. 2. If providing water flush recommend 135 ml water flush q 4 hours 3. prealbumin q tuesday and 4. daily weights 5. Continue routine bowel care Addendum: 10/02/19 at [address] Amended: Links added.
[2019-10-02] MEDS: dexmedetomidin/NS 400mcg/100ml 100 ML IV SCH (15:56)
--- NOTE | 2019-10-02 16:10 | NUR ---
THERAPY HELD. INCREASED PATIENT AGITATION, PATIENT ATTEMPTING TO SELF EXTUBATE. NURSING NOTIFIED RESTRAINTS IN PLACE. Addendum: 10/02/19 at 1611 by Chadd Garcia RT Amended: Links added.
--- NOTE | 2019-10-02 18:05 | NUR ---
Problems reprioritized. Patient report given, questions answered & plan of care reviewed with NANETTE Elam.
--- NOTE | 2019-10-02 18:10 | NUR ---
Patient in room CICU 2013. I have received report from NANETTE Roger and had the opportunity to ask questions and assume patient care.
[2019-10-02] MEDS: insulin glargine (Lantus) pen - multi-dose SQ SCH (20:57)
[2019-10-02] MEDS: dextrose 50%-water 50ml dispensing syringe IV PRN (21:30)
[2019-10-02] MEDS: midazolam 100mg in NS 100ml 100 ML IV PRN (22:23)
[2019-10-03] VITALS (22 sets, daily range): BP systolic 129–167; BP diastolic 68–93
[2019-10-03] MEDS: ipratropium/albuterol 3ml nebule NEB SCH ×6 (00:07→23:31)
[2019-10-03] MEDS: mineral oil/petrolatum ophthal oint EACHEYE SCH ×4 (02:08→20:00)
[2019-10-03] MEDS: methylPREDNISolone sod succ/PF 40mg inj. IV SCH ×4 (02:08→20:02)
[2019-10-03] MEDS: insulin regular, human U-100 3ml vial - multi-dose SQ SCH ×2 (02:10→08:40)
[2019-10-03] MEDS: sodium chloride 0.45% 1,000 ML IV SCH (02:12)
[2019-10-03 03:41] LABS: ABG HCO3 22.9 mmol/L (22.0-26.0); ABG OXYGEN SATURATION 92.5 % (95-98); ABG PCO2 (T) 30.7 mmHg (35.0-45.0); ABG PO2 (T) 65.2 mmHg (83-108); ALLEN'S TEST POSITIVE; FCOHb 0.3 % (0.5-1.5); FMetHb 0.3 % (0.3-1.12); FO2Hb 91.9 % (94-100); PATIENT TEMPERATURE 36.8; PEEP 5 cm H2O; RESPIRATORY RATE 20 b/min; TIDAL VOLUME 550 mL; TOTAL HEMOGLOBIN 9.6 G/dl (14.0-17.9)
[2019-10-03] MEDS: dexmedetomidin/NS 400mcg/100ml 100 ML IV SCH ×2 (04:17→04:45)
[2019-10-03] MEDS: midazolam 100mg in NS 100ml 100 ML IV PRN (04:27)
[2019-10-03 05:56] LABS: BASOPHILS % (AUTO) 0.1 % (0-1); EOSINOPHILS % (AUTO) 0 % (0-6); HEMATOCRIT 26.7 % (42.0-52.0); LYMPHOCYTES # (AUTO) 0.3 X10'3 (1.1-4.8); LYMPHOCYTES % (AUTO) 4.8 % (21-51); MEAN CORPUSCULAR HEMOGLOBIN 26.5 PG (27.0-31.0); MEAN CORPUSCULAR HGB CONC 33.5 g/dL (33.0-36.5); MEAN CORPUSCULAR VOLUME 79.1 FL (78-98); MEAN PLATELET VOLUME 9.9 FL (7.4-10.4); MONOCYTES # (AUTO) 0.6 X10'3 (0-0.9); MONOCYTES % (AUTO) 9.5 % (2-12); NEUTROPHILS # (AUTO) 5.8 X10'3 (1.8-7.7); NEUTROPHILS % (AUTO) 85.6 % (42-75); PLATELET COUNT 65 X10'3 (140-440); RED BLOOD COUNT 3.38 X10'6 (4.70-6.10); RED CELL DISTRIBUTION WIDTH 17.9 % (11.5-14.5); WHITE BLOOD COUNT 6.8 X10'3 (4.5-11.0)
[2019-10-03 06:01] LABS: PARTIAL THROMBOPLASTIN TIME 22 SECONDS (22-32)
[2019-10-03 06:15] LABS: ALANINE AMINOTRANSFERASE 144 U/L (12-78); ALBUMIN 1.9 G/DL (3.4-5.0); ALBUMIN/GLOBULIN RATIO 0.5 (1.1-1.5); ALKALINE PHOSPHATASE 98 IU/L (46-116); ANION GAP 13 (8-16); ASPARTATE AMINO TRANSFERASE 55 U/L (10-37); BILIRUBIN,TOTAL 0.2 MG/DL (0.1-1.0); BLOOD UREA NITROGEN 130 MG/DL (7-18); BUN/CREATININE RATIO 47.1 (5.4-32.0); CALCIUM 7.6 MG/DL (8.5-10.1); CHLORIDE 105 MMOL/L (99-107); CREATININE 2.76 MG/DL (0.60-1.10); GLUCOSE 169 MG/DL (70-104); MAGNESIUM 3.3 MG/DL (1.5-2.4); PHOSPHORUS 5.4 MG/DL (2.3-4.5); POTASSIUM 3.7 MMOL/L (3.5-5.1); SODIUM 143 MMOL/L (135-145); TOTAL CARBON DIOXIDE 24.7 MMOL/L (24-32); TOTAL PROTEIN 5.6 G/DL (6.4-8.2); eGFR 25 ML/MIN
[2019-10-03] MEDS ORDERED: VANCOMYCIN LEVEL IV ONE (07:30)
[2019-10-03 07:44] LABS: ANISOCYTOSIS 1+; MICROCYTOSIS 1+; PLATELET ESTIMATE DECREASED
[2019-10-03] MEDS: OLANZapine 5mg rapidly disint. tablet PO SCH (08:00)
[2019-10-03] MEDS: K, MAG and/or Phos replacement - Verify level? MC SCH (08:00)
[2019-10-03] MEDS: vancomycin inj. 750 MG in normal saline 250ml IV soln 250 ML IV SCH ×2 (08:00→08:04)
[2019-10-03] MEDS: pantoprazole 40 MG vial IV SCH (08:02)
[2019-10-03] MEDS: docusate sodium 100mg/10ml UD cup NG SCH ×2 (08:02→20:00)
[2019-10-03] MEDS: lactobacillus rhamnosus 10,000 MMU CELLS/CAPSULE NG SCH ×2 (08:02→20:00)
[2019-10-03] MEDS: thiamine inj. 100 MG, magnesium 1 gm/2ml inj. 2 GM in normal saline 100ml IV soln 100 ML IV SCH (08:03)
[2019-10-03] MEDS: MVI, adult No.4 with vit. K 10 ML in dextrose 5% water 500ml 490 ML IV SCH ×2 (08:03)
[2019-10-03] MEDS: CefTRIAXone 2gm/D5W 50ml 50 ML IV SCH (08:03)
[2019-10-03] MEDS ORDERED: vancomycin inj. 750 MG in normal saline 250ml IV soln 250 ML IV SCH (08:30)
--- NOTE | 2019-10-03 11:30 | NUR ---
Patient has been extubated. Patient is alert and speaking. Patient has been given a breathing treatment and is now on a NC @ 6L. O2 sats are in the mid to high 80s. RT is going to grab a hiflo NC and then we will titrate down O2 as able.
[2019-10-03] MEDS: dextrose 50%-water 50ml dispensing syringe IV PRN (16:29)
--- NOTE | 2019-10-03 18:08 | NUR ---
Patient in room [facility] 2013. I have received report from Marialuisa FITZPATRICK and had the opportunity to ask questions and assume patient care. Addendum: 10/03/19 at 1805 by Hang Barragan RN Took patient report from Marialuisa FITZPATRICK at 0630 not 1802
--- NOTE | 2019-10-03 18:23 | NUR ---
Problems reprioritized. Patient report given, questions answered & plan of care reviewed with Roberto Carlos FITZPATRICK.
[2019-10-03] MEDS: insulin glargine (Lantus) pen - multi-dose SQ SCH (20:13)
--- NOTE | 2019-10-03 20:14 | NUR ---
PATIENT REFUSED SOLU-MEDROL. He stated that he doesn't trust me. I explained how the process works; physician orders the meds and the RN administers them, and verification process. He seems to be A&O. He also is refusing bi-pap. His o2 sats are in the low 80's on 15L HFNC. I explained that and he says he doesn't care
[2019-10-03] MEDS ORDERED: LORazepam 2 mg/ml vial IV ONE (21:25)
--- NOTE | 2019-10-03 21:52 | NUR ---
Patient now wearing the bi-pap. Ativan given per patient's request.
--- NOTE | 2019-10-03 23:49 | NUR ---
Pt refusing to keep bipap mask on, stating he can't breathe with it on. Pt placed back on high flow salter at 15 lpm by RN, however his sats were in the mid to low 80's. Pt given a breathing tx via mask with improvements in O2 saturations. Pt now has on the 15 liter high flow salter nasal cannula with a 50% venturi mask as well. Sats maintaining at 91%. Pt seemed to also tolerate PD&P, but he does not clear secretions, has a dry cough despite his coarse breath sounds. Will cont to monitor pt and will try bipap again when pt is more cooperative. Addendum: 10/04/19 at 0158 by Jessi East RT Amended: Links added.
[2019-10-04] VITALS (24 sets, daily range): BP systolic 99–189; BP diastolic 55–93
--- NOTE | 2019-10-04 01:53 | NUR ---
patient refusing bi-pap again. Maintaining sats with HFNC combined with venturi mask. Breathing is labored and tachypneic.
[2019-10-04] MEDS: mineral oil/petrolatum ophthal oint EACHEYE SCH ×4 (02:00→19:49)
[2019-10-04] MEDS ORDERED: LORazepam 2 mg/ml vial IV ONE (02:40)
--- NOTE | 2019-10-04 02:40 | NUR ---
patient now not answering questions appropriately, wanting to take mask off, struggling to breath. Notified RACHEL Tolbert. Got order for more ativan and will place patient on bi-pap.
[2019-10-04] MEDS: ipratropium/albuterol 3ml nebule NEB SCH ×6 (03:16→23:17)
[2019-10-04 03:41] LABS: ABG BASE EXCESS 0.6 mmol/L (-2.0-3.0); ABG HCO3 24.5 mmol/L (22.0-26.0); ABG PCO2 (T) 37.8 mmHg (35.0-45.0); ABG PH (T) 7.433 (7.350-7.450); ABG PO2 (T) 96.5 mmHg (83-108); ALLEN'S TEST POSITIVE; FCOHb 0.2 % (0.5-1.5); FMetHb 0.1 % (0.3-1.12); FO2Hb 95.7 % (94-100); PATIENT TEMPERATURE 37.6; RESPIRATORY RATE 10 b/min; TOTAL HEMOGLOBIN 10.5 G/dl (14.0-17.9)
[2019-10-04] MEDS ORDERED: VANCOmycin 1250MG/NS 250ml Bag 250 ML IV SCH (04:00)
[2019-10-04] MEDS: dexmedetomidin/NS 400mcg/100ml 100 ML IV SCH ×2 (04:10→19:49)
[2019-10-04] MEDS: sodium chloride 0.45% 1,000 ML IV SCH (04:10)
[2019-10-04 04:56] LABS: HEMATOCRIT 30.1 % (42.0-52.0)
[2019-10-04 04:57] LABS: MEAN CORPUSCULAR HEMOGLOBIN 26.3 PG (27.0-31.0); MEAN CORPUSCULAR HGB CONC 33.1 g/dL (33.0-36.5); MEAN CORPUSCULAR VOLUME 79.6 FL (78-98); MEAN PLATELET VOLUME 9.4 FL (7.4-10.4); PLATELET COUNT 107 X10'3 (140-440); RED BLOOD COUNT 3.79 X10'6 (4.70-6.10); RED CELL DISTRIBUTION WIDTH 17.3 % (11.5-14.5); WHITE BLOOD COUNT 12.9 X10'3 (4.5-11.0)
[2019-10-04 05:03] LABS: PARTIAL THROMBOPLASTIN TIME 25 SECONDS (22-32)
[2019-10-04 05:12] LABS: ALANINE AMINOTRANSFERASE 118 U/L (12-78); ALBUMIN 1.9 G/DL (3.4-5.0); ALBUMIN/GLOBULIN RATIO 0.5 (1.1-1.5); ALKALINE PHOSPHATASE 92 IU/L (46-116); ANION GAP 6 (8-16); ASPARTATE AMINO TRANSFERASE 77 U/L (10-37); BILIRUBIN,TOTAL 0.4 MG/DL (0.1-1.0); BLOOD UREA NITROGEN 116 MG/DL (7-18); CALCIUM 7.3 MG/DL (8.5-10.1); CHLORIDE 115 MMOL/L (99-107); CREATININE 2.52 MG/DL (0.60-1.10); GLUCOSE 88 MG/DL (70-104); MAGNESIUM 3.3 MG/DL (1.5-2.4); PHOSPHORUS 5.3 MG/DL (2.3-4.5); POTASSIUM 3.6 MMOL/L (3.5-5.1); PREALBUMIN 18.8 MG/DL (19-36); SODIUM 150 MMOL/L (135-145); TOTAL CARBON DIOXIDE 29.2 MMOL/L (24-32); TOTAL PROTEIN 5.5 G/DL (6.4-8.2); eGFR 28 ML/MIN
[2019-10-04] MEDS ORDERED: morphine 2 MG/ML inj. syringe IV ONE (07:15)
[2019-10-04] MEDS: methylPREDNISolone sod succ/PF 40mg inj. IV SCH ×2 (07:34→19:50)
[2019-10-04] MEDS: pantoprazole 40 MG vial IV SCH (07:36)
[2019-10-04] MEDS: CefTRIAXone 2gm/D5W 50ml 50 ML IV SCH (07:37)
--- NOTE | 2019-10-04 07:44 | NUR ---
METANEB AND PD&P NOT DONE, PT UNCOOPERATIVE AND VERY AGITATE. PT HAS INCREASED WOB AND UNABLE TO KEEP STILL. RR IN THE 40'S AND WILL INCREASE TO THE 60'S AT TIMES. PT CURRENTLY ON BIPAP AT 60%. WILL CONTINUE TO MONITOR/ Addendum: 10/04/19 at 0748 by Emily Tatum RT Amended: Links added.
[2019-10-04 07:48] LABS: TOTAL CELLS COUNTED 100
[2019-10-04 07:49] LABS: PLATELET ESTIMATE DECREASED
[2019-10-04 07:50] LABS: ANISOCYTOSIS 1+; MICROCYTOSIS 1+
[2019-10-04 07:51] LABS: TOXIC GRANULATION 1+
[2019-10-04] MEDS: K, MAG and/or Phos replacement - Verify level? MC SCH (08:00)
[2019-10-04] MEDS: lactobacillus rhamnosus 10,000 MMU CELLS/CAPSULE NG SCH ×2 (08:00→19:51)
[2019-10-04] MEDS: thiamine inj. 100 MG, magnesium 1 gm/2ml inj. 2 GM in normal saline 100ml IV soln 100 ML IV SCH (08:00)
[2019-10-04] MEDS: MVI, adult No.4 with vit. K 10 ML in dextrose 5% water 500ml 490 ML IV SCH ×2 (08:00)
[2019-10-04] MEDS: docusate sodium 100mg/10ml UD cup NG SCH ×2 (08:00→19:51)
[2019-10-04 08:11] LABS: ABG HCO3 25.4 mmol/L (22.0-26.0); ABG OXYGEN SATURATION 93.4 % (95-98); ABG PCO2 (T) 36.8 mmHg (35.0-45.0); ABG PH (T) 7.461 (7.350-7.450); ABG PO2 (T) 71.8 mmHg (83-108); ALLEN'S TEST POSITIVE; FCOHb 0.3 % (0.5-1.5); FMetHb 0.1 % (0.3-1.12); RESPIRATORY RATE 10 b/min; TOTAL HEMOGLOBIN 10.7 G/dl (14.0-17.9)
[2019-10-04 09:11] LABS: ABG BASE EXCESS 0.6 mmol/L (-2.0-3.0); ABG HCO3 27.3 mmol/L (22.0-26.0); ABG OXYGEN SATURATION 80.2 % (95-98); ABG PO2 (T) 50.5 mmHg (83-108); ALLEN'S TEST POSITIVE; FCOHb 0.3 % (0.5-1.5); FMetHb 0.2 % (0.3-1.12); FO2Hb 79.8 % (94-100); PEEP 18 cm H2O; RESPIRATORY RATE 18 b/min; TIDAL VOLUME 450 mL; TOTAL HEMOGLOBIN 12.3 G/dl (14.0-17.9)
[2019-10-04] MEDS: FENTANYL-0.9 % NACL/PF 100 ML IV PRN ×2 (09:13→17:21)
[2019-10-04] MEDS: dextrose 5%-water 1,000 ML IV SCH (10:55)
--- NOTE | 2019-10-04 12:00 | NUR ---
PICC LINE: LOT: [id number] REF: [id number] EXP: 04/28/2020
--- NOTE | 2019-10-04 12:02 | NUR ---
Reassessment: Pt extubated and then reintubated pending new OG placement per RN. JASMYN d/w RN okay to restart EN at goal since previously tolerating. Minimum of 100ml Q6 free water to start in addition to D5 for Na 150 per assistant professor of psychology. LBM 2/4. Will monitor for EN tolerance. Recommend: 1. Continuous tube feeding with vital AF at goal rate of 80 ml/hr will provide total volume 1920 ml, 2304 cals, 144 g protein, 1555 ml water. 2. water flush 100ml q6 hours per assistant professor of psychology 3. prealbumin q tuesday and 4. daily weights 5. Continue routine bowel care Addendum: 10/04/19 at [address] Amended: Links added.
[2019-10-04 12:51] LABS: ABG BASE EXCESS -0.6 mmol/L (-2.0-3.0); ABG HCO3 24.1 mmol/L (22.0-26.0); ABG OXYGEN SATURATION 96.1 % (95-98); ABG PCO2 (T) 39.9 mmHg (35.0-45.0); ABG PH (T) 7.399 (7.350-7.450); ABG PO2 (T) 91.4 mmHg (83-108); ALLEN'S TEST POSITIVE; FCOHb 0.3 % (0.5-1.5); FMetHb 0.1 % (0.3-1.12); FO2Hb 95.7 % (94-100); PEEP 12 cm H2O; RESPIRATORY RATE 18 b/min; TIDAL VOLUME 450 mL
[2019-10-04] MEDS: OLANZapine 5mg rapidly disint. tablet PO SCH (17:13)
[2019-10-04] MEDS: midazolam 100mg in NS 100ml 100 ML IV PRN (18:05)
[2019-10-04] MEDS: linezolid 600mg/300ml PREMIX 300 ML IV SCH (19:50)
[2019-10-04] MEDS: heparin, porcine 5000 units/ml vial SQ SCH (19:51)
[2019-10-04] MEDS: insulin regular, human U-100 3ml vial - multi-dose SQ SCH (20:51)
[2019-10-04] MEDS: insulin glargine (Lantus) pen - multi-dose SQ SCH (20:52)
[2019-10-05] VITALS (22 sets, daily range): BP systolic 97–148; BP diastolic 48–76
[2019-10-05] MEDS: midazolam 100mg in NS 100ml 100 ML IV PRN ×3 (00:08→19:23)
[2019-10-05] MEDS: piperacillin/tazo 4.5gm/100ml 100 ML IV SCH ×4 (00:09→23:54)
[2019-10-05] MEDS: dextrose 5%-water 1,000 ML IV SCH ×3 (00:09→16:55)
[2019-10-05] MEDS: FENTANYL-0.9 % NACL/PF 100 ML IV PRN ×2 (00:32→07:57)
[2019-10-05] MEDS: mineral oil/petrolatum ophthal oint EACHEYE SCH ×4 (02:14→20:01)
[2019-10-05] MEDS: insulin regular, human U-100 3ml vial - multi-dose SQ SCH ×4 (02:26→20:04)
[2019-10-05 03:03] LABS: BASOPHILS % (AUTO) 0.2 % (0-1); EOSINOPHILS % (AUTO) 0 % (0-6); HEMATOCRIT 25.2 % (42.0-52.0); HEMOGLOBIN 8.3 g/dl (14.0-17.9); LYMPHOCYTES # (AUTO) 0.2 X10'3 (1.1-4.8); LYMPHOCYTES % (AUTO) 1.9 % (21-51); MEAN CORPUSCULAR HEMOGLOBIN 26.9 PG (27.0-31.0); MEAN CORPUSCULAR HGB CONC 32.9 g/dL (33.0-36.5); MEAN CORPUSCULAR VOLUME 81.7 FL (78-98); MEAN PLATELET VOLUME 9.5 FL (7.4-10.4); MONOCYTES # (AUTO) 0.2 X10'3 (0-0.9); NEUTROPHILS # (AUTO) 10.5 X10'3 (1.8-7.7); NEUTROPHILS % (AUTO) 95.9 % (42-75); PLATELET COUNT 114 X10'3 (140-440); RED BLOOD COUNT 3.08 X10'6 (4.70-6.10); RED CELL DISTRIBUTION WIDTH 17.9 % (11.5-14.5)
[2019-10-05 03:08] LABS: PARTIAL THROMBOPLASTIN TIME 28 SECONDS (22-32)
[2019-10-05 03:09] LABS: ALANINE AMINOTRANSFERASE 83 U/L (12-78); ALBUMIN 1.5 G/DL (3.4-5.0); ALBUMIN/GLOBULIN RATIO 0.4 (1.1-1.5); ALKALINE PHOSPHATASE 78 IU/L (46-116); ANION GAP 7 (8-16); ASPARTATE AMINO TRANSFERASE 31 U/L (10-37); BILIRUBIN,TOTAL 0.2 MG/DL (0.1-1.0); BLOOD UREA NITROGEN 108 MG/DL (7-18); BUN/CREATININE RATIO 41.2 (5.4-32.0); CALCIUM 7.2 MG/DL (8.5-10.1); CHLORIDE 114 MMOL/L (99-107); CREATININE 2.62 MG/DL (0.60-1.10); GLUCOSE 254 MG/DL (70-104); MAGNESIUM 3.4 MG/DL (1.5-2.4); PHOSPHORUS 7.3 MG/DL (2.3-4.5); POTASSIUM 4.6 MMOL/L (3.5-5.1); SODIUM 148 MMOL/L (135-145); TOTAL PROTEIN 5.2 G/DL (6.4-8.2); eGFR 27 ML/MIN
[2019-10-05] MEDS: ipratropium/albuterol 3ml nebule NEB SCH ×6 (04:06→22:18)
[2019-10-05 04:56] LABS: ABG BASE EXCESS -2.1 mmol/L (-2.0-3.0); ABG HCO3 24.8 mmol/L (22.0-26.0); ABG OXYGEN SATURATION 95.7 % (95-98); ABG PCO2 (T) 52.1 mmHg (35.0-45.0); ABG PH (T) 7.292 (7.350-7.450); FCOHb 0.3 % (0.5-1.5); FMetHb 0.3 % (0.3-1.12); FO2Hb 95.1 % (94-100); PATIENT TEMPERATURE 36.3; TOTAL HEMOGLOBIN 9.1 G/dl (14.0-17.9)
--- NOTE | 2019-10-05 06:38 | NUR ---
Problems reprioritized. Patient report given, questions answered & plan of care reviewed with PAM FITZPATRICK.
[2019-10-05] MEDS: dexmedetomidin/NS 400mcg/100ml 100 ML IV SCH ×2 (07:05→19:47)
[2019-10-05] MEDS: K, MAG and/or Phos replacement - Verify level? MC SCH (08:00)
[2019-10-05] MEDS: methylPREDNISolone sod succ/PF 40mg inj. IV SCH ×2 (08:00→19:59)
[2019-10-05] MEDS: pantoprazole 40 MG vial IV SCH (08:01)
[2019-10-05] MEDS: heparin, porcine 5000 units/ml vial SQ SCH ×2 (08:04→19:58)
[2019-10-05] MEDS: lactobacillus rhamnosus 10,000 MMU CELLS/CAPSULE NG SCH ×2 (08:05→19:56)
[2019-10-05] MEDS: docusate sodium 100mg/10ml UD cup NG SCH ×2 (08:05→20:00)
[2019-10-05] MEDS: OLANZapine 5mg rapidly disint. tablet PO SCH (08:05)
[2019-10-05] MEDS: thiamine inj. 100 MG, magnesium 1 gm/2ml inj. 2 GM in normal saline 100ml IV soln 100 ML IV SCH (08:13)
[2019-10-05] MEDS: linezolid 600mg/300ml PREMIX 300 ML IV SCH ×2 (08:13→19:56)
[2019-10-05] MEDS: MORPHINE/PF 100 MG in NS 100ml IV IV SCH (09:57)
[2019-10-05] MEDS: MVI, adult No.4 with vit. K 10 ML in dextrose 5% water 500ml 490 ML IV SCH ×2 (10:14)
--- NOTE | 2019-10-05 13:55 | NUR ---
Reassessment: Pt intubated and sedated. Per Wet End Helper okay to increase water flush to 150 ml q 4 in view of elevated sodium, now 148 from 150. Per WOC note patient has unstageable eschar wound to left and right corners of mouth. Continue with current nutrition intervention. Recommend: 1. Continuous tube feeding with vital AF at goal rate of 80 ml/hr will provide total volume 1920 ml, 2304 cals, 144 g protein, 1555 ml water. 2. water flush 150 q 4 hours per sign shop supervisor 3. prealbumin q tuesday and 4. daily weights 5. Continue routine bowel care Addendum: 10/05/19 at [address] Amended: Links added.
[2019-10-05] MEDS: insulin glargine (Lantus) pen - multi-dose SQ SCH (20:06)
[2019-10-06] VITALS (24 sets, daily range): BP systolic 152–181; BP diastolic 75–86
[2019-10-06] MEDS: dextrose 5%-water 1,000 ML IV SCH ×2 (00:12→15:01)
[2019-10-06] MEDS: insulin regular, human U-100 3ml vial - multi-dose SQ SCH ×4 (01:59→20:37)
[2019-10-06] MEDS: ipratropium/albuterol 3ml nebule NEB SCH ×6 (02:28→22:25)
[2019-10-06] MEDS: mineral oil/petrolatum ophthal oint EACHEYE SCH ×4 (03:05→21:08)
[2019-10-06] MEDS: midazolam 100mg in NS 100ml 100 ML IV PRN ×4 (03:06→23:04)
[2019-10-06 04:06] LABS: ABG BASE EXCESS -0.6 mmol/L (-2.0-3.0); ABG HCO3 24.5 mmol/L (22.0-26.0); ABG OXYGEN SATURATION 96.9 % (95-98); ABG PCO2 (T) 42.8 mmHg (35.0-45.0); ABG PH (T) 7.377 (7.350-7.450); ABG PO2 (T) 99.3 mmHg (83-108); FCOHb 0.3 % (0.5-1.5); FMetHb 0.2 % (0.3-1.12); FO2Hb 96.4 % (94-100); PATIENT TEMPERATURE 37.2; PEEP 10 cm H2O; RESPIRATORY RATE 20 b/min; TIDAL VOLUME 500 mL; TOTAL HEMOGLOBIN 8.5 G/dl (14.0-17.9)
[2019-10-06 04:46] LABS: BASOPHILS % (AUTO) 0.2 % (0-1); EOSINOPHILS % (AUTO) 0 % (0-6); HEMATOCRIT 23.7 % (42.0-52.0); HEMOGLOBIN 7.7 g/dl (14.0-17.9); LYMPHOCYTES # (AUTO) 0.2 X10'3 (1.1-4.8); LYMPHOCYTES % (AUTO) 1.5 % (21-51); MEAN CORPUSCULAR HEMOGLOBIN 26.5 PG (27.0-31.0); MEAN CORPUSCULAR HGB CONC 32.7 g/dL (33.0-36.5); MEAN PLATELET VOLUME 9.8 FL (7.4-10.4); MONOCYTES # (AUTO) 0.2 X10'3 (0-0.9); MONOCYTES % (AUTO) 1.4 % (2-12); NEUTROPHILS # (AUTO) 11.8 X10'3 (1.8-7.7); NEUTROPHILS % (AUTO) 96.9 % (42-75); PLATELET COUNT 106 X10'3 (140-440); RED BLOOD COUNT 2.92 X10'6 (4.70-6.10); RED CELL DISTRIBUTION WIDTH 17.5 % (11.5-14.5); WHITE BLOOD COUNT 12.2 X10'3 (4.5-11.0)
[2019-10-06 04:59] LABS: PARTIAL THROMBOPLASTIN TIME 25 SECONDS (22-32)
[2019-10-06 05:01] LABS: ALANINE AMINOTRANSFERASE 75 U/L (12-78); ALBUMIN 1.7 G/DL (3.4-5.0); ALBUMIN/GLOBULIN RATIO 0.4 (1.1-1.5); ALKALINE PHOSPHATASE 74 IU/L (46-116); ANION GAP 6 (8-16); ASPARTATE AMINO TRANSFERASE 22 U/L (10-37); BILIRUBIN,TOTAL 0.3 MG/DL (0.1-1.0); BLOOD UREA NITROGEN 110 MG/DL (7-18); BUN/CREATININE RATIO 40.1 (5.4-32.0); CALCIUM 7.5 MG/DL (8.5-10.1); CHLORIDE 111 MMOL/L (99-107); CREATININE 2.74 MG/DL (0.60-1.10); GLUCOSE 135 MG/DL (70-104); MAGNESIUM 3.2 MG/DL (1.5-2.4); PHOSPHORUS 5.1 MG/DL (2.3-4.5); SODIUM 147 MMOL/L (135-145); TOTAL CARBON DIOXIDE 29.9 MMOL/L (24-32); TOTAL PROTEIN 5.5 G/DL (6.4-8.2); eGFR 26 ML/MIN
[2019-10-06] MEDS: K, MAG and/or Phos replacement - Verify level? MC SCH (07:26)
[2019-10-06] MEDS: OLANZapine 5mg rapidly disint. tablet PO SCH (08:37)
[2019-10-06] MEDS: lactobacillus rhamnosus 10,000 MMU CELLS/CAPSULE NG SCH ×2 (08:39→20:19)
[2019-10-06] MEDS: docusate sodium 100mg/10ml UD cup NG SCH ×2 (08:39→20:00)
[2019-10-06] MEDS: pantoprazole 40 MG vial IV SCH (08:40)
[2019-10-06] MEDS: methylPREDNISolone sod succ/PF 40mg inj. IV SCH ×2 (08:40→20:20)
[2019-10-06] MEDS: heparin, porcine 5000 units/ml vial SQ SCH ×2 (08:45→20:20)
[2019-10-06] MEDS: thiamine inj. 100 MG, magnesium 1 gm/2ml inj. 2 GM in normal saline 100ml IV soln 100 ML IV SCH (08:45)
[2019-10-06] MEDS: linezolid 600mg/300ml PREMIX 300 ML IV SCH ×2 (08:50→22:43)
[2019-10-06] MEDS: MORPHINE/PF 100 MG in NS 100ml IV IV SCH ×2 (09:16→22:43)
[2019-10-06] MEDS: MVI, adult No.4 with vit. K 10 ML in dextrose 5% water 500ml 490 ML IV SCH ×2 (10:00)
[2019-10-06] MEDS: dexmedetomidin/NS 400mcg/100ml 100 ML IV SCH ×2 (10:50→21:11)
[2019-10-06] MEDS: piperacillin/tazo 4.5gm/100ml 100 ML IV SCH ×2 (11:04→17:22)
[2019-10-06 12:30] LABS: ABG BASE EXCESS -1.4 mmol/L (-2.0-3.0); ABG OXYGEN SATURATION 96.4 % (95-98); ABG PCO2 (T) 32.5 mmHg (35.0-45.0); ABG PO2 (T) 88.9 mmHg (83-108); FCOHb 0.3 % (0.5-1.5); FMetHb 0.3 % (0.3-1.12); FO2Hb 95.8 % (94-100); PATIENT TEMPERATURE 37.6; PEEP 5 cm H2O; RESPIRATORY RATE 20 b/min; TIDAL VOLUME 500 mL; TOTAL HEMOGLOBIN 8.5 G/dl (14.0-17.9)
--- NOTE | 2019-10-06 18:30 | NUR ---
Patient in room CICU 2013. I have received report from Claribel FITZPATRICK and had the opportunity to ask questions and assume patient care.
[2019-10-06] MEDS: insulin glargine (Lantus) pen - multi-dose SQ SCH (21:05)
[2019-10-07] VITALS (24 sets, daily range): BP systolic 137–191; BP diastolic 56–89
[2019-10-07] MEDS: dextrose 5%-water 1,000 ML IV SCH ×3 (01:07→18:55)
[2019-10-07] MEDS: piperacillin/tazo 4.5gm/100ml 100 ML IV SCH ×2 (01:07→08:00)
[2019-10-07] MEDS: ipratropium/albuterol 3ml nebule NEB SCH ×6 (02:29→23:24)
[2019-10-07] MEDS: insulin regular, human U-100 3ml vial - multi-dose SQ SCH (02:34)
[2019-10-07] MEDS: mineral oil/petrolatum ophthal oint EACHEYE SCH ×2 (02:34→08:00)
[2019-10-07] MEDS: hydrALAZINE 20mg/ml inj. IV PRN (02:35)
[2019-10-07 02:40] LABS: BASOPHILS # (AUTO) 0.1 X10'3 (0-0.2); BASOPHILS % (AUTO) 0.7 % (0-1); EOSINOPHILS % (AUTO) 0 % (0-6); HEMATOCRIT 25.1 % (42.0-52.0); HEMOGLOBIN 8.2 g/dl (14.0-17.9); LYMPHOCYTES # (AUTO) 0.2 X10'3 (1.1-4.8); LYMPHOCYTES % (AUTO) 1.4 % (21-51); MEAN CORPUSCULAR HEMOGLOBIN 26.3 PG (27.0-31.0); MEAN CORPUSCULAR HGB CONC 32.9 g/dL (33.0-36.5); MEAN PLATELET VOLUME 9.4 FL (7.4-10.4); MONOCYTES # (AUTO) 0.2 X10'3 (0-0.9); MONOCYTES % (AUTO) 1.9 % (2-12); NEUTROPHILS # (AUTO) 10.7 X10'3 (1.8-7.7); PLATELET COUNT 122 X10'3 (140-440); RED BLOOD COUNT 3.13 X10'6 (4.70-6.10); RED CELL DISTRIBUTION WIDTH 17.6 % (11.5-14.5); WHITE BLOOD COUNT 11.2 X10'3 (4.5-11.0)
[2019-10-07 02:51] LABS: PARTIAL THROMBOPLASTIN TIME 26 SECONDS (22-32)
[2019-10-07 02:56] LABS: ALANINE AMINOTRANSFERASE 61 U/L (12-78); ALBUMIN 1.7 G/DL (3.4-5.0); ALBUMIN/GLOBULIN RATIO 0.5 (1.1-1.5); ALKALINE PHOSPHATASE 73 IU/L (46-116); ANION GAP 8 (8-16); ASPARTATE AMINO TRANSFERASE 21 U/L (10-37); BILIRUBIN,TOTAL 0.4 MG/DL (0.1-1.0); BLOOD UREA NITROGEN 87 MG/DL (7-18); BUN/CREATININE RATIO 38.3 (5.4-32.0); CALCIUM 7.2 MG/DL (8.5-10.1); CHLORIDE 110 MMOL/L (99-107); CREATININE 2.27 MG/DL (0.60-1.10); GLUCOSE 191 MG/DL (70-104); MAGNESIUM 2.7 MG/DL (1.5-2.4); PHOSPHORUS 4.3 MG/DL (2.3-4.5); POTASSIUM 4.1 MMOL/L (3.5-5.1); SODIUM 144 MMOL/L (135-145); TOTAL CARBON DIOXIDE 25.8 MMOL/L (24-32); TOTAL PROTEIN 5.4 G/DL (6.4-8.2); eGFR 32 ML/MIN
[2019-10-07] MEDS ORDERED: VANCOMYCIN LEVEL IV ONE (03:30)
[2019-10-07 04:25] LABS: ABG BASE EXCESS -1.2 mmol/L (-2.0-3.0); ABG HCO3 22.3 mmol/L (22.0-26.0); ABG OXYGEN SATURATION 97.9 % (95-98); ABG PCO2 (T) 32.1 mmHg (35.0-45.0); ABG PO2 (T) 102.6 mmHg (83-108); FCOHb 0.2 % (0.5-1.5); FMetHb 0.3 % (0.3-1.12); FO2Hb 97.4 % (94-100); PATIENT TEMPERATURE 36.7; PEEP 5 cm H2O; RESPIRATORY RATE 20 b/min; TIDAL VOLUME 500 mL; TOTAL HEMOGLOBIN 8.9 G/dl (14.0-17.9)
[2019-10-07] MEDS: midazolam 100mg in NS 100ml 100 ML IV PRN (04:56)
--- NOTE | 2019-10-07 06:32 | NUR ---
Problems reprioritized. Patient report given, questions answered & plan of care reviewed with Audra FITZPATRICK.
[2019-10-07] MEDS: linezolid 600mg/300ml PREMIX 300 ML IV SCH (07:34)
[2019-10-07] MEDS: K, MAG and/or Phos replacement - Verify level? MC SCH (08:00)
[2019-10-07] MEDS: pantoprazole 40 MG vial IV SCH (08:37)
[2019-10-07] MEDS: MVI, adult No.4 with vit. K 10 ML in dextrose 5% water 500ml 490 ML IV SCH ×2 (08:37)
[2019-10-07] MEDS: lactobacillus rhamnosus 10,000 MMU CELLS/CAPSULE NG SCH ×2 (08:37→20:05)
[2019-10-07] MEDS: docusate sodium 100mg/10ml UD cup NG SCH ×2 (08:37→20:00)
[2019-10-07] MEDS: methylPREDNISolone sod succ/PF 40mg inj. IV SCH ×2 (08:37→20:08)
[2019-10-07] MEDS: OLANZapine 5mg rapidly disint. tablet PO SCH (08:38)
[2019-10-07] MEDS: heparin, porcine 5000 units/ml vial SQ SCH ×2 (08:38→20:06)
[2019-10-07] MEDS: thiamine inj. 100 MG, magnesium 1 gm/2ml inj. 2 GM in normal saline 100ml IV soln 100 ML IV SCH (08:38)
[2019-10-07] MEDS: dexmedetomidin/NS 400mcg/100ml 100 ML IV SCH (09:53)
--- NOTE | 2019-10-07 12:20 | NUR ---
extubated, SO at bedside, ogt dc'd
--- NOTE | 2019-10-07 18:10 | NUR ---
Patient in room CICU 2013. I have received report from NANETTE Zhu and had the opportunity to ask questions and assume patient care.
--- NOTE | 2019-10-07 20:30 | NUR ---
No insulin coverage give. Saadia advised to start patient over on protocol and see if he meets because tube feedings were DCed and patient does not have a history of DM (A1C 5.7). Patient is still on Solu-Medrol. Will continue to monitor.
[2019-10-07] MEDS: insulin glargine (Lantus) pen - multi-dose SQ SCH (21:00)
[2019-10-08] VITALS (24 sets, daily range): BP systolic 136–199; BP diastolic 64–96
[2019-10-08 01:04] LABS: BASOPHILS % (AUTO) 0.1 % (0-1); EOSINOPHILS % (AUTO) 0 % (0-6); HEMATOCRIT 25.1 % (42.0-52.0); HEMOGLOBIN 8.4 g/dl (14.0-17.9); LYMPHOCYTES # (AUTO) 0.2 X10'3 (1.1-4.8); LYMPHOCYTES % (AUTO) 1.4 % (21-51); MEAN CORPUSCULAR HEMOGLOBIN 26.8 PG (27.0-31.0); MEAN CORPUSCULAR HGB CONC 33.3 g/dL (33.0-36.5); MEAN CORPUSCULAR VOLUME 80.2 FL (78-98); MEAN PLATELET VOLUME 9.7 FL (7.4-10.4); MONOCYTES # (AUTO) 0.4 X10'3 (0-0.9); MONOCYTES % (AUTO) 3.1 % (2-12); NEUTROPHILS # (AUTO) 12.9 X10'3 (1.8-7.7); NEUTROPHILS % (AUTO) 95.4 % (42-75); PLATELET COUNT 151 X10'3 (140-440); RED BLOOD COUNT 3.13 X10'6 (4.70-6.10); RED CELL DISTRIBUTION WIDTH 17.5 % (11.5-14.5); WHITE BLOOD COUNT 13.6 X10'3 (4.5-11.0)
[2019-10-08 01:20] LABS: PARTIAL THROMBOPLASTIN TIME 24 SECONDS (22-32)
[2019-10-08 01:22] LABS: ALANINE AMINOTRANSFERASE 57 U/L (12-78); ALBUMIN 1.8 G/DL (3.4-5.0); ALBUMIN/GLOBULIN RATIO 0.5 (1.1-1.5); ALKALINE PHOSPHATASE 71 IU/L (46-116); ANION GAP 8 (8-16); ASPARTATE AMINO TRANSFERASE 25 U/L (10-37); BILIRUBIN,TOTAL 0.4 MG/DL (0.1-1.0); BLOOD UREA NITROGEN 78 MG/DL (7-18); BUN/CREATININE RATIO 37.5 (5.4-32.0); CALCIUM 7.3 MG/DL (8.5-10.1); CHLORIDE 111 MMOL/L (99-107); CREATININE 2.08 MG/DL (0.60-1.10); GLUCOSE 195 MG/DL (70-104); MAGNESIUM 2.5 MG/DL (1.5-2.4); PHOSPHORUS 4.1 MG/DL (2.3-4.5); POTASSIUM 4.2 MMOL/L (3.5-5.1); PREALBUMIN 25.9 MG/DL (19-36); SODIUM 145 MMOL/L (135-145); TOTAL CARBON DIOXIDE 26.3 MMOL/L (24-32); TOTAL PROTEIN 5.4 G/DL (6.4-8.2); eGFR 35 ML/MIN
[2019-10-08] MEDS: ipratropium/albuterol 3ml nebule NEB SCH ×6 (03:59→23:31)
[2019-10-08] MEDS: dextrose 5%-water 1,000 ML IV SCH (04:55)
[2019-10-08] MEDS: docusate sodium 100mg/10ml UD cup NG SCH (07:48)
[2019-10-08] MEDS: lactobacillus rhamnosus 10,000 MMU CELLS/CAPSULE NG SCH (07:59)
[2019-10-08] MEDS ORDERED: multi-vitamin w/minerals & ferrous gluconate 9 MG/15 ML oral LIQUID PO SCH (08:00)
[2019-10-08] MEDS: K, MAG and/or Phos replacement - Verify level? MC SCH (08:00)
[2019-10-08] MEDS: thiamine 100mg tablet PO SCH (08:02)
[2019-10-08] MEDS: OLANZapine 5mg rapidly disint. tablet PO SCH (08:03)
[2019-10-08] MEDS: folic acid 1mg tablet PO SCH (08:04)
[2019-10-08] MEDS: pantoprazole 40 MG vial IV SCH (08:05)
[2019-10-08] MEDS: heparin, porcine 5000 units/ml vial SQ SCH ×3 (08:06→20:26)
[2019-10-08] MEDS: methylPREDNISolone sod succ/PF 40mg inj. IV SCH ×2 (08:06→20:25)
[2019-10-08] MEDS: multivitamins, therapeutics tablet PO SCH (08:09)
[2019-10-08] MEDS: NIFEdipine XL 30mg tablet PO SCH (11:22)
[2019-10-08] MEDS ORDERED: acetaminophen 325mg tablet PO PRN (12:09)
[2019-10-08] MEDS ORDERED: dextrose ORAL solution 15 GM/59 ML bottle PO PRN ×2 (12:10)
[2019-10-08] MEDS ORDERED: lactulose 20gm/30ml cup PO PRN (12:11)
[2019-10-08] MEDS: furosemide 40mg/4ml inj IV SCH ×2 (14:10→21:00)
--- NOTE | 2019-10-08 14:25 | NUR ---
Reassessment: Pt extubated yesterday. Pt advanced to mechanical soft, soft to chew food diet with fair PO intake avg 50-75% first two meals. LBM 10/07. Will continue to monitor. Recommend: 1. continue mechanical soft, soft to chew food diet 2. monitor need for ONS 3. Continue routine bowel care 4. Weight per rx Addendum: 10/08/19 at 1426 by Wing Linette VINES Amended: Links added. Addendum: 10/08/19 at [address] JASMYN Matos
--- NOTE | 2019-10-08 17:30 | NUR ---
Right femoral arterial line dc'd due to clotting. Line removed without complications. No hematoma or bleeding. Pedal pulses remained intact. Site dressed with sterile gauze and occlusive dressing. Pressure dressing applied with foam tape
--- NOTE | 2019-10-08 18:25 | NUR ---
Patient in room CICU 2012. I have received report from NANETTE Franklin and had the opportunity to ask questions and assume patient care. Patient is resting comfortably, is at bedside. He is A&O x3 and appropriate, I will continue to monitor.
[2019-10-08] MEDS: docusate sodium 100mg/10ml UD cup PO SCH (20:00)
[2019-10-08] MEDS: lactobacillus rhamnosus 10,000 MMU CELLS/CAPSULE PO SCH (20:25)
[2019-10-08] MEDS: acetaminophen 325mg tablet PO PRN (20:25)
[2019-10-08] MEDS: insulin glargine (Lantus) pen - multi-dose SQ SCH (21:00)
[2019-10-08] MEDS: hydrALAZINE 20mg/ml inj. IV PRN ×2 (22:08→22:40)
[2019-10-09] VITALS (19 sets, daily range): BP systolic 131–177; BP diastolic 67–87
[2019-10-09] MEDS: ipratropium/albuterol 3ml nebule NEB SCH ×5 (03:23→21:01)
[2019-10-09 04:08] LABS: BASOPHILS % (AUTO) 0.3 % (0-1); EOSINOPHILS % (AUTO) 0 % (0-6); HEMATOCRIT 23.6 % (42.0-52.0); LYMPHOCYTES # (AUTO) 0.3 X10'3 (1.1-4.8); LYMPHOCYTES % (AUTO) 2.5 % (21-51); MEAN CORPUSCULAR HEMOGLOBIN 27.2 PG (27.0-31.0); MEAN CORPUSCULAR HGB CONC 33.7 g/dL (33.0-36.5); MEAN CORPUSCULAR VOLUME 80.5 FL (78-98); MEAN PLATELET VOLUME 9.1 FL (7.4-10.4); MONOCYTES # (AUTO) 0.4 X10'3 (0-0.9); MONOCYTES % (AUTO) 4.2 % (2-12); NEUTROPHILS # (AUTO) 9.8 X10'3 (1.8-7.7); PLATELET COUNT 185 X10'3 (140-440); RED BLOOD COUNT 2.93 X10'6 (4.70-6.10); RED CELL DISTRIBUTION WIDTH 16.7 % (11.5-14.5); WHITE BLOOD COUNT 10.5 X10'3 (4.5-11.0)
[2019-10-09 04:21] LABS: ALANINE AMINOTRANSFERASE 61 U/L (12-78); ALBUMIN/GLOBULIN RATIO 0.6 (1.1-1.5); ALKALINE PHOSPHATASE 74 IU/L (46-116); ANION GAP 7 (8-16); ASPARTATE AMINO TRANSFERASE 28 U/L (10-37); BILIRUBIN,TOTAL 0.5 MG/DL (0.1-1.0); BLOOD UREA NITROGEN 67 MG/DL (7-18); BUN/CREATININE RATIO 35.1 (5.4-32.0); CALCIUM 7.5 MG/DL (8.5-10.1); CHLORIDE 112 MMOL/L (99-107); CREATININE 1.91 MG/DL (0.60-1.10); GLUCOSE 163 MG/DL (70-104); MAGNESIUM 2.1 MG/DL (1.5-2.4); PHOSPHORUS 4.5 MG/DL (2.3-4.5); POTASSIUM 4.8 MMOL/L (3.5-5.1); SODIUM 146 MMOL/L (135-145); TOTAL CARBON DIOXIDE 26.7 MMOL/L (24-32); TOTAL PROTEIN 5.5 G/DL (6.4-8.2); eGFR 39 ML/MIN
--- NOTE | 2019-10-09 06:10 | NUR ---
Problems reprioritized. Patient report given, questions answered & plan of care reviewed with NANETTE Franklin.
[2019-10-09] MEDS: K, MAG and/or Phos replacement - Verify level? MC SCH (07:09)
[2019-10-09] MEDS: docusate sodium 100mg/10ml UD cup PO SCH ×2 (08:00→22:23)
[2019-10-09] MEDS: lactobacillus rhamnosus 10,000 MMU CELLS/CAPSULE PO SCH ×2 (08:07→22:22)
[2019-10-09] MEDS: thiamine 100mg tablet PO SCH (08:07)
[2019-10-09] MEDS: NIFEdipine XL 30mg tablet PO SCH (08:07)
[2019-10-09] MEDS: multivitamins, therapeutics tablet PO SCH (08:07)
[2019-10-09] MEDS: OLANZapine 5mg rapidly disint. tablet PO SCH (08:07)
[2019-10-09] MEDS: folic acid 1mg tablet PO SCH (08:07)
[2019-10-09] MEDS: furosemide 40mg/4ml inj IV SCH ×3 (08:11→22:23)
[2019-10-09] MEDS: pantoprazole 40 MG vial IV SCH (08:11)
[2019-10-09] MEDS: methylPREDNISolone sod succ/PF 40mg inj. IV SCH ×2 (08:11→22:29)
[2019-10-09] MEDS: heparin, porcine 5000 units/ml vial SQ SCH ×2 (08:12→22:35)
--- NOTE | 2019-10-09 08:30 | NUR ---
Patient in room CICU 2013. I have received report from Noemi FITZPATRICK and had the opportunity to ask questions and assume patient care.
--- NOTE | 2019-10-09 09:23 | NUR ---
Dr. Brooks in to see pt. Gave orders for pt. to transfer to Surgical with no tele monitor. Addendum: 10/09/19 at 1022 by Kristen Burdick RN Dr. Brooks notified of pt's sleeplessness at [facility]. Denied the order for a sleeping aid.
--- NOTE | 2019-10-09 09:26 | NUR ---
Hospitalist paged per Dr. Brooks's request. PAGER ID: [phone] MESSAGE: Dr. Aura Brooks is transferring R. Bisi 2013 to Surgical Floor today. He has signed out to the Hospitalist. Thanks. Kristen FITZPATRICK [facility] x [phone]
[2019-10-09 12:48] LABS: PARTIAL THROMBOPLASTIN TIME 25 SECONDS (22-32)
--- NOTE | 2019-10-09 14:25 | NUR ---
Awaiting a room upstairs. Pt. siting in chair now per PT.
--- NOTE | 2019-10-09 16:52 | NUR ---
Pt. to room 358A via w/c with belongings, chart and meds in stable condition after giving report to Claudia FITZPATRICK.
--- NOTE | 2019-10-09 17:00 | NUR ---
Ivana Parikh in room [facility] 358. I have received report from ivana lindo and had the opportunity to ask questions and assume patient care.
--- NOTE | 2019-10-09 18:11 | NUR ---
patient settled into room alert and orientated. Report given to Quiana FITZPATRICK
--- NOTE | 2019-10-09 18:28 | NUR ---
Problems reprioritized. Patient report given, questions answered & plan of care reviewed with Quiana FITZPATRICK.
--- NOTE | 2019-10-09 18:30 | NUR ---
Patient in room [facility] 358. I have received report from Claudia FITZPATRICK and had the opportunity to ask questions and assume patient care.
[2019-10-09] MEDS: acetaminophen 325mg tablet PO PRN (18:33)
[2019-10-09] MEDS: insulin glargine (Lantus) pen - multi-dose SQ SCH (21:00)
[2019-10-10] VITALS: BP 142/73
[2019-10-10] MEDS: ipratropium/albuterol 3ml nebule NEB SCH ×7 (00:04→23:00)
[2019-10-10 05:48] LABS: BASOPHILS % (AUTO) 0.1 % (0-1); EOSINOPHILS % (AUTO) 0.1 % (0-6); HEMATOCRIT 23.9 % (42.0-52.0); LYMPHOCYTES # (AUTO) 0.4 X10'3 (1.1-4.8); LYMPHOCYTES % (AUTO) 4.3 % (21-51); MEAN CORPUSCULAR HEMOGLOBIN 27.1 PG (27.0-31.0); MEAN CORPUSCULAR HGB CONC 33.4 g/dL (33.0-36.5); MEAN CORPUSCULAR VOLUME 81.1 FL (78-98); MEAN PLATELET VOLUME 9.1 FL (7.4-10.4); MONOCYTES # (AUTO) 0.3 X10'3 (0-0.9); MONOCYTES % (AUTO) 3.5 % (2-12); NEUTROPHILS # (AUTO) 9.1 X10'3 (1.8-7.7); PLATELET COUNT 173 X10'3 (140-440); RED BLOOD COUNT 2.95 X10'6 (4.70-6.10); RED CELL DISTRIBUTION WIDTH 16.6 % (11.5-14.5); WHITE BLOOD COUNT 9.9 X10'3 (4.5-11.0)
--- NOTE | 2019-10-10 06:47 | NUR ---
Problems reprioritized. Patient report given, questions answered & plan of care reviewed with Ángel FITZPATRICK.
[2019-10-10 06:58] LABS: ALANINE AMINOTRANSFERASE 66 U/L (12-78); ALBUMIN 2.2 G/DL (3.4-5.0); ALBUMIN/GLOBULIN RATIO 0.6 (1.1-1.5); ALKALINE PHOSPHATASE 75 IU/L (46-116); ANION GAP 12 (8-16); ASPARTATE AMINO TRANSFERASE 28 U/L (10-37); BILIRUBIN,TOTAL 0.6 MG/DL (0.1-1.0); BLOOD UREA NITROGEN 55 MG/DL (7-18); BUN/CREATININE RATIO 31.3 (5.4-32.0); CALCIUM 7.8 MG/DL (8.5-10.1); CHLORIDE 112 MMOL/L (99-107); CREATININE 1.76 MG/DL (0.60-1.10); GLUCOSE 148 MG/DL (70-104); MAGNESIUM 1.8 MG/DL (1.5-2.4); PHOSPHORUS 4.9 MG/DL (2.3-4.5); POTASSIUM 4.8 MMOL/L (3.5-5.1); SODIUM 147 MMOL/L (135-145); TOTAL CARBON DIOXIDE 23.4 MMOL/L (24-32); TOTAL PROTEIN 5.8 G/DL (6.4-8.2); eGFR 43 ML/MIN
[2019-10-10 08:00] VITALS: BP 173/88
[2019-10-10] MEDS: docusate sodium 100mg/10ml UD cup PO SCH ×3 (08:00→20:00)
[2019-10-10] MEDS: furosemide 40mg/4ml inj IV SCH ×3 (08:00→20:39)
[2019-10-10] MEDS: K, MAG and/or Phos replacement - Verify level? MC SCH (08:00)
[2019-10-10] MEDS: NIFEdipine XL 30mg tablet PO SCH (08:00)
[2019-10-10] MEDS: folic acid 1mg tablet PO SCH (09:12)
[2019-10-10] MEDS: OLANZapine 5mg rapidly disint. tablet PO SCH (09:12)
[2019-10-10] MEDS: lactobacillus rhamnosus 10,000 MMU CELLS/CAPSULE PO SCH ×2 (09:12→20:41)
[2019-10-10] MEDS: thiamine 100mg tablet PO SCH (09:12)
[2019-10-10] MEDS: multivitamins, therapeutics tablet PO SCH (09:13)
[2019-10-10] MEDS: heparin, porcine 5000 units/ml vial SQ SCH ×2 (09:13→20:41)
[2019-10-10] MEDS: methylPREDNISolone sod succ/PF 40mg inj. IV SCH ×2 (09:14→20:00)
[2019-10-10] MEDS: pantoprazole 40 MG vial IV SCH (09:14)
[2019-10-10 10:11] LABS: PARTIAL THROMBOPLASTIN TIME 24 SECONDS (22-32)
[2019-10-10 11:00] VITALS: BP 152/80
--- NOTE | 2019-10-10 12:31 | NUR ---
svn triaged by rt rt busy with intubation in unit and several bipap starts in er Addendum: 10/10/19 at 1233 by Aide Pickett RT Amended: Links added.
--- NOTE | 2019-10-10 13:11 | NUR ---
patient stated " I am losing too much fluid, I dont want the lasix" patient missed the 8 am dose and the 1400 dose
[2019-10-10 18:00] VITALS: BP 161/85
--- NOTE | 2019-10-10 18:45 | NUR ---
Patient in room [facility] 358. I have received report from NANETTE Neal and had the opportunity to ask questions and assume patient care.
[2019-10-10] MEDS: insulin glargine (Lantus) pen - multi-dose SQ SCH (21:00)
[2019-10-10] MEDS: metoprolol succinate 25mg (24-HOUR) SR. Tablet PO SCH (22:51)
[2019-10-11] VITALS (8 sets, daily range): BP systolic 133–163; BP diastolic 70–86
[2019-10-11 04:59] LABS: BASOPHILS % (AUTO) 0 % (0-1); EOSINOPHILS # (AUTO) 0.1 X10'3 (0-0.9); LYMPHOCYTES # (AUTO) 0.6 X10'3 (1.1-4.8); LYMPHOCYTES % (AUTO) 7.7 % (21-51); MEAN CORPUSCULAR HEMOGLOBIN 26.7 PG (27.0-31.0); MEAN CORPUSCULAR HGB CONC 32.8 g/dL (33.0-36.5); MEAN CORPUSCULAR VOLUME 81.4 FL (78-98); MEAN PLATELET VOLUME 8.6 FL (7.4-10.4); MONOCYTES # (AUTO) 0.6 X10'3 (0-0.9); MONOCYTES % (AUTO) 6.8 % (2-12); NEUTROPHILS # (AUTO) 6.9 X10'3 (1.8-7.7); NEUTROPHILS % (AUTO) 84.5 % (42-75); PLATELET COUNT 173 X10'3 (140-440); RED BLOOD COUNT 2.59 X10'6 (4.70-6.10); RED CELL DISTRIBUTION WIDTH 16.6 % (11.5-14.5); WHITE BLOOD COUNT 8.1 X10'3 (4.5-11.0)
[2019-10-11 05:12] LABS: ALANINE AMINOTRANSFERASE 51 U/L (12-78); ALBUMIN 2.1 G/DL (3.4-5.0); ALBUMIN/GLOBULIN RATIO 0.7 (1.1-1.5); ALKALINE PHOSPHATASE 68 IU/L (46-116); ANION GAP 8 (8-16); ASPARTATE AMINO TRANSFERASE 22 U/L (10-37); BILIRUBIN,TOTAL 0.5 MG/DL (0.1-1.0); BLOOD UREA NITROGEN 39 MG/DL (7-18); BUN/CREATININE RATIO 22.5 (5.4-32.0); CALCIUM 7.4 MG/DL (8.5-10.1); CHLORIDE 114 MMOL/L (99-107); CREATININE 1.73 MG/DL (0.60-1.10); GLUCOSE 96 MG/DL (70-104); MAGNESIUM 1.8 MG/DL (1.5-2.4); PHOSPHORUS 4.2 MG/DL (2.3-4.5); POTASSIUM 4.3 MMOL/L (3.5-5.1); PREALBUMIN 27.1 MG/DL (19-36); SODIUM 146 MMOL/L (135-145); TOTAL CARBON DIOXIDE 23.7 MMOL/L (24-32); TOTAL PROTEIN 5.2 G/DL (6.4-8.2); eGFR 44 ML/MIN
[2019-10-11 05:35] LABS: HEMOGLOBIN 6.9 g/dl (14.0-17.9)
[2019-10-11 05:36] LABS: HEMATOCRIT 21.1 % (42.0-52.0)
--- NOTE | 2019-10-11 05:42 | NUR ---
Dr. Esquivel called with critical H&H result. Per Dr. Esquivel, please pass on to day shift nurse to pass on to day time hospitalist.
--- NOTE | 2019-10-11 06:00 | NUR ---
Patient in room [facility] 358. I have received report from NANETTE Ruiz and had the opportunity to ask questions and assume patient care.
--- NOTE | 2019-10-11 06:20 | NUR ---
Problems reprioritized. Patient report given, questions answered & plan of care reviewed with NANETTE Lemon. Addendum: 10/11/19 at 0646 by Sara Santos RN Critical H&H lab passed on to NANETTE Lemon when report was given.
[2019-10-11] MEDS: ipratropium/albuterol 3ml nebule NEB SCH ×5 (07:00→23:00)
[2019-10-11] MEDS: K, MAG and/or Phos replacement - Verify level? MC SCH (08:00)
[2019-10-11] MEDS: heparin, porcine 5000 units/ml vial SQ SCH (08:00)
[2019-10-11] MEDS: docusate sodium 100mg/10ml UD cup PO SCH ×2 (08:00→22:20)
[2019-10-11] MEDS: methylPREDNISolone sod succ/PF 40mg inj. IV SCH ×2 (08:00→20:00)
[2019-10-11] MEDS: atorvastatin 20mg tablet PO SCH (08:00)
[2019-10-11 09:59] LABS: ANISOCYTOSIS 1+; PLATELET ESTIMATE NORMAL
[2019-10-11] MEDS: OLANZapine 5mg rapidly disint. tablet PO SCH (11:03)
[2019-10-11] MEDS: pantoprazole 40 MG vial IV SCH (11:04)
[2019-10-11] MEDS: metoprolol succinate 25mg (24-HOUR) SR. Tablet PO SCH (11:04)
[2019-10-11] MEDS: furosemide 40mg/4ml inj IV SCH ×2 (11:05→20:00)
[2019-10-11] MEDS: folic acid 1mg tablet PO SCH (11:05)
[2019-10-11] MEDS: lactobacillus rhamnosus 10,000 MMU CELLS/CAPSULE PO SCH ×2 (11:07→22:19)
[2019-10-11] MEDS: thiamine 100mg tablet PO SCH (11:07)
[2019-10-11] MEDS: multivitamins, therapeutics tablet PO SCH (11:08)
--- NOTE | 2019-10-11 11:15 | NUR ---
Reassessment: PNA and sepsis resolved per MD notes. Wt fluctuates +/- 10 kg during admission, current wt is +6.5 kg of admit wt. Unsure of the accuracy of weights given the great fluctuations, however fluid likely to contribute to changes in weight given pt on Lasix with negative 11.5 L fluid balance over the last five days per I&O. Pt continues on [facility] soft diet documented with 75-100% PO intake meeting nutrient needs. LBM 10/10. No nutrition intervention warranted at this time. Will continue to follow. Recommend: 1. Continue mechanical soft gluten free diet 2. Monitor need for ONS/additional protein 3. Continue routine bowel care 4. Weight per rx Addendum: 10/11/19 at [address] Amended: Links added.
[2019-10-11] MEDS ORDERED: metoprolol tartrate 1mg/ml inj IV PRN (17:25)
[2019-10-11] MEDS ORDERED: regadenoson 0.4mg/5ml syringe IV PRN (17:25)
[2019-10-11] MEDS ORDERED: aminophylline 250mg/10ml inj. IV PRN (17:25)
[2019-10-11] MEDS ORDERED: nitroGLYCERIN 0.4mg SUBLingual tab SL PRN (17:25)
--- NOTE | 2019-10-11 18:00 | NUR ---
Problems reprioritized. Patient report given, questions answered & plan of care reviewed with NANETTE Masterson.
[2019-10-11 18:36] LABS: % IRON SATURATION 16 % (11-46); IRON 36 UG/DL (53-167); TOTAL IRON BINDING CAPACITY 222 UG/DL (259-388)
[2019-10-11 18:47] LABS: FERRITIN 179 NG/ML (26-388); TROPONIN I < 0.04 NG/ML (0.0-0.05)
[2019-10-11 22:25] LABS: HEMATOCRIT 23.3 % (42.0-52.0); HEMOGLOBIN 7.8 g/dl (14.0-17.9); MEAN CORPUSCULAR HEMOGLOBIN 27.3 PG (27.0-31.0); MEAN CORPUSCULAR HGB CONC 33.6 g/dL (33.0-36.5); MEAN CORPUSCULAR VOLUME 81.3 FL (78-98); MEAN PLATELET VOLUME 7.9 FL (7.4-10.4); PLATELET COUNT 171 X10'3 (140-440); RED BLOOD COUNT 2.87 X10'6 (4.70-6.10); RED CELL DISTRIBUTION WIDTH 16.1 % (11.5-14.5); WHITE BLOOD COUNT 10.6 X10'3 (4.5-11.0)
--- NOTE | 2019-10-11 22:30 | NUR ---
pt eating chocolate. informed pt of need to have no caffeine or decaf/low-caffeine content products in preparation of Pat-scan for tomorrow
[2019-10-11 22:55] LABS: OCCULT BLOOD STOOL NEGATIVE (Neg)
[2019-10-12] VITALS (9 sets, daily range): BP systolic 116–148; BP diastolic 58–87
[2019-10-12] MEDS: ipratropium/albuterol 3ml nebule NEB SCH ×3 (03:00→11:00)
[2019-10-12 05:58] LABS: BASOPHILS % (AUTO) 0.1 % (0-1); EOSINOPHILS # (AUTO) 0.1 X10'3 (0-0.9); EOSINOPHILS % (AUTO) 0.8 % (0-6); HEMOGLOBIN 7.6 g/dl (14.0-17.9); LYMPHOCYTES # (AUTO) 0.8 X10'3 (1.1-4.8); LYMPHOCYTES % (AUTO) 8.1 % (21-51); MEAN CORPUSCULAR HEMOGLOBIN 28.2 PG (27.0-31.0); MEAN CORPUSCULAR HGB CONC 34.3 g/dL (33.0-36.5); MEAN CORPUSCULAR VOLUME 82.1 FL (78-98); MEAN PLATELET VOLUME 8.3 FL (7.4-10.4); MONOCYTES # (AUTO) 0.6 X10'3 (0-0.9); MONOCYTES % (AUTO) 6.5 % (2-12); NEUTROPHILS # (AUTO) 7.9 X10'3 (1.8-7.7); NEUTROPHILS % (AUTO) 84.5 % (42-75); PLATELET COUNT 155 X10'3 (140-440); RED BLOOD COUNT 2.69 X10'6 (4.70-6.10); RED CELL DISTRIBUTION WIDTH 15.7 % (11.5-14.5); WHITE BLOOD COUNT 9.3 X10'3 (4.5-11.0)
[2019-10-12 06:35] LABS: ALANINE AMINOTRANSFERASE 44 U/L (12-78); ALBUMIN 2.2 G/DL (3.4-5.0); ALBUMIN/GLOBULIN RATIO 0.7 (1.1-1.5); ALKALINE PHOSPHATASE 63 IU/L (46-116); ANION GAP 11 (8-16); ASPARTATE AMINO TRANSFERASE 17 U/L (10-37); BILIRUBIN,TOTAL 0.5 MG/DL (0.1-1.0); BLOOD UREA NITROGEN 40 MG/DL (7-18); BUN/CREATININE RATIO 20.7 (5.4-32.0); CALCIUM 7.3 MG/DL (8.5-10.1); CHLORIDE 115 MMOL/L (99-107); CREATININE 1.93 MG/DL (0.60-1.10); GLUCOSE 109 MG/DL (70-104); MAGNESIUM 1.8 MG/DL (1.5-2.4); PHOSPHORUS 4.5 MG/DL (2.3-4.5); POTASSIUM 4.2 MMOL/L (3.5-5.1); SODIUM 147 MMOL/L (135-145); TOTAL CARBON DIOXIDE 20.8 MMOL/L (24-32); TOTAL PROTEIN 5.5 G/DL (6.4-8.2); eGFR 38 ML/MIN
--- NOTE | 2019-10-12 07:15 | NUR ---
MD De La Cruz notified regarding low hematocrit of 22.0. Awaiting orders.
[2019-10-12] MEDS: K, MAG and/or Phos replacement - Verify level? MC SCH (08:00)
[2019-10-12] MEDS: docusate sodium 100mg/10ml UD cup PO SCH (08:00)
[2019-10-12] MEDS: pantoprazole 40 MG vial IV SCH (08:00)
[2019-10-12] MEDS: methylPREDNISolone sod succ/PF 40mg inj. IV SCH (08:00)
[2019-10-12] MEDS: metoprolol succinate 25mg (24-HOUR) SR. Tablet PO SCH ×2 (08:02→13:31)
[2019-10-12] MEDS: thiamine 100mg tablet PO SCH (13:31)
[2019-10-12] MEDS: furosemide 40mg/4ml inj IV SCH (13:31)
[2019-10-12] MEDS: multivitamins, therapeutics tablet PO SCH (13:31)
[2019-10-12] MEDS: lactobacillus rhamnosus 10,000 MMU CELLS/CAPSULE PO SCH (13:31)
[2019-10-12] MEDS: atorvastatin 20mg tablet PO SCH (13:32)
[2019-10-12] MEDS: OLANZapine 5mg rapidly disint. tablet PO SCH (13:32)
[2019-10-12] MEDS: folic acid 1mg tablet PO SCH (13:32)
[2019-10-12] MEDS ORDERED: FERR325T28 PO (15:50)
[2019-10-12] MEDS ORDERED: LACT1CAP26 PO (15:50)
[2019-10-12] MEDS ORDERED: ATOR20TA66 PO (15:50)
[2019-10-12] MEDS ORDERED: MULT-1179 PO (15:50)
[2019-10-12] MEDS ORDERED: PANT40TA4 PO (15:50)
[2019-10-12] MEDS ORDERED: METO-395 PO (15:50)
[2019-10-12] MEDS ORDERED: OLAN5TAB29 PO (15:50)
[2019-10-12] MEDS ORDERED: THIA100T70 PO (15:51)
[2019-10-12] MEDS ORDERED: FOLI0.4T2 PO (15:51)
--- NOTE | 2019-10-12 17:03 | NUR ---
Patient discharged home into the care of family. Patient verbalized understanding of discharge instructions and will follow up with MD Calle, office number was provided on the DC instructions. Patient's PICC and IV removed with Picc intact. Patient medications sent to preferred pharmacy listed. Patient escorted down by a member of staff, alert, oriented, and appropriate for discharge.
== END 2019-10-12 17:00 | disposition home or self-care (01) | DRG 720 ==
LOC: ER 18:18 → ED HOLD 23:10 → CICU 2S 09-27 00:45 → SUR 3N 10-09 16:41
PROVIDERS: ADMIT Internal Medicine Critical Care Medicine; ATTEND Family Medicine
PROC: 5A1955Z Respiratory Ventilation, Greater than 96 Consecutive Hours (ICD-10-PCS; 2019-09-26)
PROC: 02HV33Z Insertion of Infusion Device into Superior Vena Cava, Percutaneous Approach (ICD-10-PCS; 2019-09-26)
PROC: 0BH17EZ Insertion of Endotracheal Airway into Trachea, Via Natural or Artificial Opening (ICD-10-PCS; 2019-09-26)
PROC: B32T1ZZ Computerized Tomography (CT Scan) of Left Pulmonary Artery using Low Osmolar Contrast (ICD-10-PCS; 2019-09-26)
PROC: B3201ZZ Computerized Tomography (CT Scan) of Thoracic Aorta using Low Osmolar Contrast (ICD-10-PCS; 2019-09-26)
PROC: B32S1ZZ Computerized Tomography (CT Scan) of Right Pulmonary Artery using Low Osmolar Contrast (ICD-10-PCS; 2019-09-26)
PROC: 5A09357 Assistance with Respiratory Ventilation, Less than 24 Consecutive Hours, Continuous Positive Airway Pressure (ICD-10-PCS; 2019-10-03)
PROC: 5A1945Z Respiratory Ventilation, 24-96 Consecutive Hours (ICD-10-PCS; 2019-10-04)
PROC: 02HV33Z Insertion of Infusion Device into Superior Vena Cava, Percutaneous Approach (ICD-10-PCS; 2019-10-04)
PROC: B548ZZA Ultrasonography of Superior Vena Cava, Guidance (ICD-10-PCS; 2019-10-04)
PROC: 0BH17EZ Insertion of Endotracheal Airway into Trachea, Via Natural or Artificial Opening (ICD-10-PCS; 2019-10-04)
PROC: 04HY32Z Insertion of Monitoring Device into Lower Artery, Percutaneous Approach (ICD-10-PCS; 2019-10-04)
PROC: 4A133B1 Monitoring of Arterial Pressure, Peripheral, Percutaneous Approach (ICD-10-PCS; 2019-10-04)
PROC: 4A133J1 Monitoring of Arterial Pulse, Peripheral, Percutaneous Approach (ICD-10-PCS; 2019-10-04)
PROC: 5A09357 Assistance with Respiratory Ventilation, Less than 24 Consecutive Hours, Continuous Positive Airway Pressure (ICD-10-PCS; 2019-10-04)
PROC: 30233N1 Transfusion of Nonautologous Red Blood Cells into Peripheral Vein, Percutaneous Approach (ICD-10-PCS; principal; 2019-10-11)
PROC: 4A02XM4 Measurement of Cardiac Total Activity, External Approach (ICD-10-PCS; 2019-10-12)
PROC: 3E033HZ Introduction of Radioactive Substance into Peripheral Vein, Percutaneous Approach (ICD-10-PCS; 2019-10-12)
DX: A41.9 Sepsis, unspecified organism (principal); I21.4 Non-ST elevation (NSTEMI) myocardial infarction; R65.21 Severe sepsis with septic shock; I50.23 Acute on chronic systolic (congestive) heart failure; J96.01 Acute respiratory failure with hypoxia; D69.6 Thrombocytopenia, unspecified; J96.02 Acute respiratory failure with hypercapnia; J18.9 Pneumonia, unspecified organism; E87.2 Acidosis; N17.9 Acute kidney failure, unspecified; D64.9 Anemia, unspecified; I42.9 Cardiomyopathy, unspecified; I82.611 Acute embolism and thrombosis of superficial veins of right upper extremity; D72.819 Decreased white blood cell count, unspecified; F12.90 Cannabis use, unspecified, uncomplicated; K90.0 Celiac disease; T40.1X1A Poisoning by heroin, accidental (unintentional), initial encounter; B19.20 Unspecified viral hepatitis C without hepatic coma; R74.0 Nonspecific elevation of levels of transaminase and lactic acid dehydrogenase [LDH]; Z87.891 Personal history of nicotine dependence; Z78.1 Physical restraint status
CPT/HCPCS: 31500; 36415; 36556; 36573; 36600; 70450; 71045; 71275; 76937; 78452; 80053; 80069; 80202; 80305; 80320; 81001; 82140; 82272; 82330; 82570; 82728; 82803; 82810; 82948; 83036; 83540; 83550; 83605; 83735; 83935; 84100; 84134; 84145; 84300; 84443; 84484; 85018; 85025; 85027; 85384; 85610; 85730; 86022; 86703; 86885; 86900; 86901; 86920; 87040; 87070; 87077; 87081; 87207; 87502; 87503; 93005; 93017; 93306; 93971; 94002; 94003; 94640; 94660; 94668; 94760; 96365; 96367; 96375; 97110; 97530; 99291; 99292; A9500; C9113; G0378; J0131; J0360; J0692; J0696; J1644; J1815; J1940; J2020; J2060; J2250; J2270; J2405; J2543; J2704; J2785; J2920; J3010; J3370; J3411; J3475; J3480; J3490; J7030; J7050; J7060; J7070; P9016; Q9967

== ENCOUNTER 2021-05-30 14:20 | Emergency (ER) | payer MEDICAID ==
[~2021-05-30] VITALS: Ht 177.8 cm; Wt 68.2 kg
[~2021-05-30 14:20] MED LIST changes: +ATOR20TA66 PO; -ERYT1OIN6 OP; +LACT1CAP26 PO; +METO-395 PO; +MULT-25 PO; +OLAN5TAB29 PO; +PANT40TA54 PO; -PERM60CR4 TOP; +THIA100T70 PO; -etomidate 2mg/ml inj. ONE; -rocuronium bromide 100mg/10ml (10mg/ml) injection IV ONE
[2021-05-30 14:42] VITALS: BP 142/98
--- NOTE | 2021-05-30 15:54 | NUR ---
, Estella, [phone] and son, Rufino, [phone]
[2021-05-30] MEDS ORDERED: NALO0.4V13 IJ (18:19)
== END 2021-05-30 18:42 | disposition home or self-care (01) ==
LOC: ER 14:20
DX: T40.1X1A Poisoning by heroin, accidental (unintentional), initial encounter (principal); Y92.89 Other specified places as the place of occurrence of the external cause
CPT/HCPCS: 93005; 99284